=== PATIENT | male | born 1965 | race Caucasian/White ===

== ENCOUNTER 2020-01-18 12:33 | Inpatient (IN) | payer MEDICAID ==
[~2020-01-18] VITALS: Ht 177.8 cm; Wt 91.0 kg
[~2020-01-18 12:33] MED LIST: DEXAMETHASONE SOD PHOS 4 MG/ML VIAL IVP ONE; FentaNYL CITRATE PF 100 MCG/2 ML VIAL IVP ONE; LIDOCAINE/PF 2% 5 ML VIAL INJ ONE; ONDANSETRON HCL 4 MG/2 ML VIAL IVP ONE; PROPOFOL 1% 20 ML VIAL IVP ONE; ROCURONIUM BROMIDE 10 MG/ML 5 ML VIAL IVP ONE
[2020-01-18] MEDS ORDERED: VANCOMYCIN HCL 1.5 GM in DEXTROSE 5%-WATER 250 ML IV ONE ×2 (15:45→19:45)
[2020-01-18] MEDS ORDERED: CefTRIAXone 1 GM/DEXTROSE 50 ML IV ONE (15:45)
[2020-01-18] MEDS ORDERED: SODIUM CHLORIDE 0.9% 250 ML IV ONE ×2 (16:41→17:19)
[2020-01-18] MEDS ORDERED: SODIUM CHLORIDE 0.9% 2,850 ML IV ONE (16:45)
[2020-01-18] MEDS ORDERED: CLINDAMYCIN 900 MG/D5% WATER 50 ML IV ONE (16:45)
[2020-01-18 17:32] LABS: BASOPHILS % (AUTO) 0.1 % (0.0-2.0); EOSINOPHILS % (AUTO) 0 % (1.0-6.0); HEMATOCRIT 32.5 % (41-53); HEMOGLOBIN 10.7 g/dL (13.5-17.5); LYMPHOCYTES # (AUTO) 1.3 K/uL (1.0-4.8); LYMPHOCYTES % (AUTO) 5.5 % (22.0-44.0); MEAN CORPUSCULAR HEMOGLOBIN 28.9 pg (26.0-34.0); MEAN CORPUSCULAR HGB CONC 32.8 G/dL (31.0-37.0); MEAN CORPUSCULAR VOLUME 88 fL (80-100); MONOCYTES % (AUTO) 8.9 % (2.0-9.0); NEUTROPHILS # (AUTO) 19.6 K/uL (1.8-7.7); PLATELET COUNT (AUTO) 283 K/uL (150-450); RED BLOOD CELL COUNT(AUTO) 3.68 MIL/uL (4.50-5.90); RED CELL DISTRIBUTION WIDTH 15.3 % (11.5-14.5)
[2020-01-18 17:34] LABS: NEUTROPHILS % (AUTO) 85.5 % (40.0-70.0)
[2020-01-18 17:35] LABS: COVID AG,FIA SOURCE NASAL SWAB
[2020-01-18 17:49] LABS: ALBUMIN 2.1 g/dL (3.4-5.0); BILIRUBIN,TOTAL 0.9 mg/dL (0.1-1.0); CALCIUM, TOTAL 8.3 mg/dL (8.8-10.5); CREATININE 2.38 mg/dL (0.60-1.30); POTASSIUM 4.5 mmol/L (3.5-5.1); TOTAL PROTEIN, SERUM 7.7 g/dL (6.4-8.2)
[2020-01-18 18:00] LABS: LACTIC ACID 1.8 mmol/L (0.4-2.0)
[2020-01-18] MEDS ORDERED: INSULIN REGULAR, HUMAN 100 UNITS/ML IVP ONE (18:15)
[2020-01-18 18:29] LABS: INR 1.1 (0.9-1.1); PROTHROMBIN TIME 11.1 SEC (9.4-11.6)
[2020-01-18] MEDS ORDERED: PIPERACILLIN/TAZO 3.375 GM/D5W 50 ML IV SCH (19:00)
[2020-01-18] MEDS ORDERED: ACETAMINOPHEN 325 MG TABLET PO PRN (19:15)
[2020-01-18] MEDS ORDERED: DEXTROSE 50%-WATER 25 GM/50 ML SYRINGE IVP PRN (19:15)
[2020-01-18] MEDS ORDERED: ONDANSETRON HCL 4 MG/2 ML VIAL IVP PRN (19:15)
[2020-01-18] MEDS ORDERED: INSULIN LISPRO 100 UNITS/ML SQ ONE (19:15)
[2020-01-18] MEDS ORDERED: MORPHINE SULFATE 4 MG/ML SYRINGE IVP PRN (19:15)
[2020-01-18] MEDS: CLINDAMYCIN 600 MG/D5% WATER 50 ML IV SCH (19:30)
[2020-01-18] MEDS ORDERED: SODIUM CL IRRIG SOLN BAG 3,000 ML IRRIG ONE (20:23)
[2020-01-18] MEDS: INSULIN GLARGINE,HUM.REC.ANLOG 100 UNITS/ML SQ SCH ×2 (20:25→21:00)
[2020-01-18] MEDS ORDERED: MEPERIDINE-PF 25 MG/ML VIAL IVP PRN (20:30)
[2020-01-18] MEDS ORDERED: FentaNYL CITRATE PF 100 MCG/2 ML VIAL IVP PRN (20:30)
[2020-01-18] MEDS ORDERED: HYDROmorphone 2 MG/ML SYRINGE IVP PRN ×2 (20:30→22:00)
[2020-01-18] MEDS ORDERED: RINGERS SOLUTION,LACTATED 1,000 ML IV ONE ×2 (20:31→22:13)
[2020-01-18] MEDS ORDERED: SODIUM CHLORIDE 0.9% 1,000 ML ONE (20:35)
[2020-01-18] MEDS: DOCUSATE SODIUM 100 MG CAPSULE PO SCH (21:00)
[2020-01-18] MEDS ORDERED: SUGAMMADEX SODIUM 200 MG/2 ML VIAL IVP ONE (21:14)
[2020-01-18 21:29] LABS: GLUCOMETER DEV NAME(LOC) AHU.; GLUCOSE,POINT OF CARE 288 MG/DL (70-110)
[2020-01-18] MEDS ORDERED: ACETAMINOPHEN 1000 MG/ISO-OSM 100 ML IV ONE ×2 (21:48→22:15)
[2020-01-18] MEDS ORDERED: PIPERACILLIN SODIUM/TAZOBACTAM 4.5 GM in DEXTROSE 5%-WATER 100 ML IV SCH (22:00)
[2020-01-18 22:52] VITALS: BP 124/70
[2020-01-18 23:00] VITALS: BP 124/70
[2020-01-18] MEDS: INSULIN LISPRO 100 UNITS/ML SQ PRN (23:33)
[2020-01-19] MEDS: SODIUM CHLORIDE 0.9% 2,850 ML IV SCH ×2 (00:30→09:30)
[2020-01-19] MEDS: PIPERACILLIN SODIUM/TAZOBACTAM 4.5 GM in DEXTROSE 5%-WATER 100 ML IV SCH ×2 (02:50→09:15)
[2020-01-19] MEDS: CLINDAMYCIN 600 MG/D5% WATER 50 ML IV SCH ×2 (03:52→12:14)
[2020-01-19 04:43] VITALS: BP 132/80
[2020-01-19] MEDS: INSULIN LISPRO 100 UNITS/ML SQ PRN ×4 (05:50→20:55)
[2020-01-19 06:21] LABS: GLUCOMETER DEV NAME(LOC) 5N.3; GLUCOSE,POINT OF CARE 330 MG/DL (70-110)
[2020-01-19 06:30] LABS: GLUCOMETER DEV NAME(LOC) 5S.1; GLUCOSE,POINT OF CARE 298 MG/DL (70-110)
[2020-01-19 06:33] LABS: BASOPHILS % (AUTO) 0.6 % (0.0-2.0); EOSINOPHILS % (AUTO) 0.1 % (1.0-6.0); HEMATOCRIT 27.4 % (41-53); HEMOGLOBIN 9.1 g/dL (13.5-17.5); LYMPHOCYTES # (AUTO) 1.3 K/uL (1.0-4.8); LYMPHOCYTES % (AUTO) 6.7 % (22.0-44.0); MEAN CORPUSCULAR HEMOGLOBIN 29.4 pg (26.0-34.0); MEAN CORPUSCULAR HGB CONC 33.3 G/dL (31.0-37.0); MEAN CORPUSCULAR VOLUME 88 fL (80-100); MONOCYTES % (AUTO) 10.2 % (2.0-9.0); NEUTROPHILS # (AUTO) 16.1 K/uL (1.8-7.7); NEUTROPHILS % (AUTO) 82.4 % (40.0-70.0); PLATELET COUNT (AUTO) 234 K/uL (150-450); RED BLOOD CELL COUNT(AUTO) 3.12 MIL/uL (4.50-5.90); RED CELL DISTRIBUTION WIDTH 15.3 % (11.5-14.5)
[2020-01-19 07:06] LABS: INR 1.1 (0.9-1.1); PROTHROMBIN TIME 11.3 SEC (9.4-11.6)
[2020-01-19 07:13] LABS: ALBUMIN 1.5 g/dL (3.4-5.0); BILIRUBIN,TOTAL 0.7 mg/dL (0.1-1.0); CALCIUM, TOTAL 7.1 mg/dL (8.8-10.5); CREATININE 2.2 mg/dL (0.60-1.30); POTASSIUM 3.9 mmol/L (3.5-5.1)
[2020-01-19] MEDS ORDERED: VANCOMYCIN HCL 1 GM/D5% WATER 200 ML IV SCH (08:00)
[2020-01-19 08:08] VITALS: BP 140/81
[2020-01-19] MEDS: DOCUSATE SODIUM 100 MG CAPSULE PO SCH ×2 (08:49→20:43)
[2020-01-19] MEDS: FAMOTIDINE 20 MG TABLET PO SCH ×2 (10:14→20:43)
[2020-01-19 11:18] VITALS: BP 138/77
[2020-01-19] MEDS: OXYGEN THERAPY IH SCH ×2 (14:56→20:42)
[2020-01-19 14:58] LABS: GLUCOMETER DEV NAME(LOC) 5S.2B; GLUCOSE,POINT OF CARE 272 MG/DL (70-110)
[2020-01-19] MEDS: MEROPENEM 2 GM in SODIUM CHLORIDE 0.9% 100 ML IV SCH ×2 (14:58→23:29)
[2020-01-19 15:05] VITALS: BP 133/74
[2020-01-19 19:40] VITALS: BP 148/75
[2020-01-19 19:57] LABS: GLUCOMETER DEV NAME(LOC) 5S.2B; GLUCOSE,POINT OF CARE 237 MG/DL (70-110)
[2020-01-19] MEDS: INSULIN GLARGINE,HUM.REC.ANLOG 100 UNITS/ML SQ SCH (20:55)
[2020-01-19] MEDS ORDERED: PB/HYOSCY/ATR/SCOP/LIDO/MAALOX 55 ML BOTTLE PO ONE (23:30)
[2020-01-20 00:27] VITALS: BP 134/75
[2020-01-20 04:45] VITALS: BP 114/80
[2020-01-20 05:06] LABS: GLUCOMETER DEV NAME(LOC) 5S.2B; GLUCOSE,POINT OF CARE 235 MG/DL (70-110)
[2020-01-20] MEDS ORDERED: SODIUM CHLORIDE 0.9% 250 ML IV ONE (05:57)
[2020-01-20 06:02] LABS: BASOPHILS % (AUTO) 0.3 % (0.0-2.0); HEMATOCRIT 27.7 % (41-53); HEMOGLOBIN 9.1 g/dL (13.5-17.5); LYMPHOCYTES # (AUTO) 1.3 K/uL (1.0-4.8); LYMPHOCYTES % (AUTO) 7.2 % (22.0-44.0); MEAN CORPUSCULAR HEMOGLOBIN 29.1 pg (26.0-34.0); MEAN CORPUSCULAR HGB CONC 32.9 G/dL (31.0-37.0); MEAN CORPUSCULAR VOLUME 89 fL (80-100); MONOCYTES # (AUTO) 1.8 K/uL (0.1-1.0); MONOCYTES % (AUTO) 9.6 % (2.0-9.0); NEUTROPHILS # (AUTO) 15.1 K/uL (1.8-7.7); NEUTROPHILS % (AUTO) 81.9 % (40.0-70.0); PLATELET COUNT (AUTO) 280 K/uL (150-450); RED BLOOD CELL COUNT(AUTO) 3.13 MIL/uL (4.50-5.90); RED CELL DISTRIBUTION WIDTH 15.3 % (11.5-14.5)
[2020-01-20] MEDS: MEROPENEM 2 GM in SODIUM CHLORIDE 0.9% 100 ML IV SCH ×2 (06:02→14:44)
[2020-01-20] MEDS: INSULIN LISPRO 100 UNITS/ML SQ PRN ×4 (06:02→22:19)
[2020-01-20 06:23] LABS: INR 1.1 (0.9-1.1); PROTHROMBIN TIME 11.1 SEC (9.4-11.6)
[2020-01-20 07:11] VITALS: BP 151/81
[2020-01-20 07:13] LABS: ALBUMIN 1.4 g/dL (3.4-5.0); BILIRUBIN,TOTAL 0.6 mg/dL (0.1-1.0); CALCIUM, TOTAL 7.3 mg/dL (8.8-10.5); CREATININE 2.03 mg/dL (0.60-1.30); POTASSIUM 3.7 mmol/L (3.5-5.1); TOTAL PROTEIN, SERUM 5.9 g/dL (6.4-8.2)
[2020-01-20] MEDS: OXYGEN THERAPY IH SCH ×2 (08:00→20:00)
[2020-01-20 08:23] LABS: GLUCOMETER DEV NAME(LOC) 5S.1; GLUCOSE,POINT OF CARE 212 MG/DL (70-110)
[2020-01-20] MEDS: DOCUSATE SODIUM 100 MG CAPSULE PO SCH ×2 (09:00→22:10)
[2020-01-20] MEDS: FAMOTIDINE 20 MG TABLET PO SCH ×2 (09:34→22:10)
[2020-01-20] MEDS: INSULIN GLARGINE,HUM.REC.ANLOG 100 UNITS/ML SQ SCH ×2 (09:36→22:18)
[2020-01-20 11:18] VITALS: BP 158/83
[2020-01-20 12:00] LABS: GLUCOMETER DEV NAME(LOC) 5S.2B; GLUCOSE,POINT OF CARE 223 MG/DL (70-110)
[2020-01-20 12:00] LABS: GLUCOMETER DEV NAME(LOC) 5S.2B; GLUCOSE,POINT OF CARE 227 MG/DL (70-110)
[2020-01-20 15:44] VITALS: BP 151/77
[2020-01-20] MEDS: BENZOCAINE/MENTHOL LOZENGE PO PRN ×2 (18:10→22:20)
[2020-01-20 22:04] LABS: GLUCOMETER DEV NAME(LOC) 5S.1; GLUCOSE,POINT OF CARE 214 MG/DL (70-110)
[2020-01-21] VITALS: BP 155/80
[2020-01-21] MEDS: MEROPENEM 2 GM in SODIUM CHLORIDE 0.9% 100 ML IV SCH ×4 (00:05→23:25)
[2020-01-21 00:24] LABS: GLUCOMETER DEV NAME(LOC) 5S.2B; GLUCOSE,POINT OF CARE 249 MG/DL (70-110)
[2020-01-21 04:00] VITALS: BP 127/53
[2020-01-21] MEDS: INSULIN LISPRO 100 UNITS/ML SQ PRN ×4 (06:32→20:54)
[2020-01-21 07:22] LABS: BASOPHILS % (AUTO) 0.5 % (0.0-2.0); HEMATOCRIT 28.2 % (41-53); HEMOGLOBIN 9.1 g/dL (13.5-17.5); LYMPHOCYTES # (AUTO) 2.2 K/uL (1.0-4.8); MEAN CORPUSCULAR HEMOGLOBIN 28.7 pg (26.0-34.0); MEAN CORPUSCULAR HGB CONC 32.2 G/dL (31.0-37.0); MEAN CORPUSCULAR VOLUME 89 fL (80-100); MONOCYTES % (AUTO) 8.8 % (2.0-9.0); NEUTROPHILS # (AUTO) 17.8 K/uL (1.8-7.7); NEUTROPHILS % (AUTO) 79.7 % (40.0-70.0); PLATELET COUNT (AUTO) 349 K/uL (150-450); RED BLOOD CELL COUNT(AUTO) 3.16 MIL/uL (4.50-5.90); RED CELL DISTRIBUTION WIDTH 15.6 % (11.5-14.5)
[2020-01-21 07:54] VITALS: BP 153/86
[2020-01-21 07:54] LABS: ALBUMIN 1.3 g/dL (3.4-5.0); BILIRUBIN,TOTAL 0.5 mg/dL (0.1-1.0); CALCIUM, TOTAL 7.6 mg/dL (8.8-10.5); CREATININE 2.11 mg/dL (0.60-1.30); POTASSIUM 3.9 mmol/L (3.5-5.1); TOTAL PROTEIN, SERUM 6.1 g/dL (6.4-8.2)
[2020-01-21] MEDS: OXYGEN THERAPY IH SCH ×2 (08:00→20:00)
[2020-01-21 08:24] LABS: GLUCOMETER DEV NAME(LOC) 5S.1; GLUCOSE,POINT OF CARE 167 MG/DL (70-110)
[2020-01-21] MEDS: DOCUSATE SODIUM 100 MG CAPSULE PO SCH ×2 (09:00→20:51)
[2020-01-21] MEDS: FAMOTIDINE 20 MG TABLET PO SCH ×2 (09:42→20:51)
[2020-01-21] MEDS: INSULIN GLARGINE,HUM.REC.ANLOG 100 UNITS/ML SQ SCH ×2 (09:43→20:53)
[2020-01-21 11:44] VITALS: BP 145/79
[2020-01-21 12:26] LABS: GLUCOMETER DEV NAME(LOC) 5S.2B; GLUCOSE,POINT OF CARE 217 MG/DL (70-110)
[2020-01-21 16:00] VITALS: BP_SYST 172; BP_SYST 180; BP_DIAS 81; BP_DIAS 89
[2020-01-21] MEDS: HYDROCODONE/ACETAMINOPHEN 5-325 MG TABLET PO PRN (16:22)
[2020-01-21 17:09] LABS: GLUCOMETER DEV NAME(LOC) 5S.2B; GLUCOSE,POINT OF CARE 188 MG/DL (70-110)
[2020-01-21 18:13] LABS: GLUCOMETER DEV NAME(LOC) 5S.2B; GLUCOSE,POINT OF CARE 230 MG/DL (70-110)
[2020-01-21 20:00] VITALS: BP 150/88
[2020-01-21] MEDS: ACETAMINOPHEN 500 MG TABLET PO PRN (23:47)
[2020-01-22] VITALS: BP 152/81
[2020-01-22 00:43] LABS: GLUCOMETER DEV NAME(LOC) 5S.1; GLUCOSE,POINT OF CARE 260 MG/DL (70-110)
[2020-01-22 04:00] VITALS: BP 153/86
[2020-01-22] MEDS: MEROPENEM 2 GM in SODIUM CHLORIDE 0.9% 100 ML IV SCH ×2 (06:34→14:35)
[2020-01-22] MEDS: INSULIN LISPRO 100 UNITS/ML SQ PRN ×3 (06:37→19:51)
[2020-01-22 06:41] LABS: BASOPHILS % (AUTO) 0.4 % (0.0-2.0); EOSINOPHILS % (AUTO) 1.4 % (1.0-6.0); HEMATOCRIT 27.8 % (41-53); HEMOGLOBIN 9.1 g/dL (13.5-17.5); LYMPHOCYTES # (AUTO) 1.6 K/uL (1.0-4.8); LYMPHOCYTES % (AUTO) 7.5 % (22.0-44.0); MEAN CORPUSCULAR HGB CONC 32.8 G/dL (31.0-37.0); MEAN CORPUSCULAR VOLUME 88 fL (80-100); MONOCYTES # (AUTO) 1.3 K/uL (0.1-1.0); MONOCYTES % (AUTO) 6.2 % (2.0-9.0); NEUTROPHILS # (AUTO) 17.6 K/uL (1.8-7.7); NEUTROPHILS % (AUTO) 84.5 % (40.0-70.0); PLATELET COUNT (AUTO) 425 K/uL (150-450); RED BLOOD CELL COUNT(AUTO) 3.14 MIL/uL (4.50-5.90); RED CELL DISTRIBUTION WIDTH 15.1 % (11.5-14.5)
[2020-01-22 06:53] LABS: ALBUMIN 1.5 g/dL (3.4-5.0); BILIRUBIN,TOTAL 0.5 mg/dL (0.1-1.0); CALCIUM, TOTAL 8.4 mg/dL (8.8-10.5); CREATININE 2.04 mg/dL (0.60-1.30); POTASSIUM 4.7 mmol/L (3.5-5.1); TOTAL PROTEIN, SERUM 6.6 g/dL (6.4-8.2)
[2020-01-22] MEDS: OXYGEN THERAPY IH SCH (08:00)
[2020-01-22] MEDS: DOCUSATE SODIUM 100 MG CAPSULE PO SCH ×2 (08:36→19:46)
[2020-01-22] MEDS: FAMOTIDINE 20 MG TABLET PO SCH ×2 (08:36→19:46)
[2020-01-22] MEDS: INSULIN GLARGINE,HUM.REC.ANLOG 100 UNITS/ML SQ SCH ×2 (08:39→19:51)
[2020-01-22] MEDS: HYDROCODONE/ACETAMINOPHEN 5-325 MG TABLET PO PRN (09:11)
[2020-01-22 16:24] VITALS: BP 152/87
[2020-01-22] MEDS: ACETAMINOPHEN 500 MG TABLET PO PRN (16:43)
[2020-01-22 18:39] LABS: GLUCOMETER DEV NAME(LOC) 5S.1; GLUCOSE,POINT OF CARE 158 MG/DL (70-110)
[2020-01-22 18:39] LABS: GLUCOMETER DEV NAME(LOC) 5S.1; GLUCOSE,POINT OF CARE 151 MG/DL (70-110)
[2020-01-22 18:39] LABS: GLUCOMETER DEV NAME(LOC) 5S.1; GLUCOSE,POINT OF CARE 182 MG/DL (70-110)
[2020-01-22 18:39] LABS: GLUCOMETER DEV NAME(LOC) 5S.1; GLUCOSE,POINT OF CARE 114 MG/DL (70-110)
[2020-01-22 20:00] VITALS: BP 151/82
[2020-01-22 20:50] LABS: GLUCOMETER DEV NAME(LOC) 5S.1; GLUCOSE,POINT OF CARE 260 MG/DL (70-110)
[2020-01-23] VITALS: BP 157/80
[2020-01-23] MEDS: MEROPENEM 2 GM in SODIUM CHLORIDE 0.9% 100 ML IV SCH ×3 (00:36→15:05)
[2020-01-23 04:00] VITALS: BP 150/78
[2020-01-23] MEDS: MORPHINE SULFATE 4 MG/ML SYRINGE IVP PRN ×2 (04:39→20:03)
[2020-01-23] MEDS: INSULIN LISPRO 100 UNITS/ML SQ PRN ×4 (06:14→20:20)
[2020-01-23 06:29] LABS: BASOPHILS % (AUTO) 0.4 % (0.0-2.0); EOSINOPHILS % (AUTO) 1.5 % (1.0-6.0); HEMATOCRIT 26.7 % (41-53); HEMOGLOBIN 9.3 g/dL (13.5-17.5); LYMPHOCYTES # (AUTO) 1.7 K/uL (1.0-4.8); LYMPHOCYTES % (AUTO) 8.4 % (22.0-44.0); MEAN CORPUSCULAR HEMOGLOBIN 30.5 pg (26.0-34.0); MEAN CORPUSCULAR HGB CONC 34.8 G/dL (31.0-37.0); MEAN CORPUSCULAR VOLUME 88 fL (80-100); MONOCYTES # (AUTO) 1.3 K/uL (0.1-1.0); MONOCYTES % (AUTO) 6.4 % (2.0-9.0); NEUTROPHILS # (AUTO) 16.9 K/uL (1.8-7.7); NEUTROPHILS % (AUTO) 83.3 % (40.0-70.0); PLATELET COUNT (AUTO) 493 K/uL (150-450); RED BLOOD CELL COUNT(AUTO) 3.04 MIL/uL (4.50-5.90)
[2020-01-23 06:39] LABS: ALBUMIN 1.3 g/dL (3.4-5.0); BILIRUBIN,TOTAL 0.5 mg/dL (0.1-1.0); CREATININE 1.94 mg/dL (0.60-1.30); TOTAL PROTEIN, SERUM 6.4 g/dL (6.4-8.2)
[2020-01-23 07:08] LABS: GLUCOMETER DEV NAME(LOC) 5S.1; GLUCOSE,POINT OF CARE 161 MG/DL (70-110)
[2020-01-23] MEDS: DOCUSATE SODIUM 100 MG CAPSULE PO SCH ×2 (08:10→20:03)
[2020-01-23 08:11] VITALS: BP 153/77
[2020-01-23] MEDS: FAMOTIDINE 20 MG TABLET PO SCH ×2 (08:11→20:03)
[2020-01-23] MEDS: INSULIN GLARGINE,HUM.REC.ANLOG 100 UNITS/ML SQ SCH ×2 (08:12→20:20)
[2020-01-23 11:10] VITALS: BP 154/86
[2020-01-23 15:12] VITALS: BP 159/77
[2020-01-23 19:32] VITALS: BP 154/79
[2020-01-23 19:51] LABS: GLUCOMETER DEV NAME(LOC) 5S.1; GLUCOSE,POINT OF CARE 198 MG/DL (70-110)
[2020-01-23 19:51] LABS: GLUCOMETER DEV NAME(LOC) 5S.1; GLUCOSE,POINT OF CARE 181 MG/DL (70-110)
[2020-01-24 00:18] VITALS: BP 151/86
[2020-01-24] MEDS: MEROPENEM 2 GM in SODIUM CHLORIDE 0.9% 100 ML IV SCH ×3 (00:32→15:56)
[2020-01-24 04:28] VITALS: BP 133/63
[2020-01-24 06:01] LABS: BASOPHILS % (AUTO) 0.6 % (0.0-2.0); EOSINOPHILS % (AUTO) 1.2 % (1.0-6.0); HEMATOCRIT 25.3 % (41-53); HEMOGLOBIN 8.5 g/dL (13.5-17.5); LYMPHOCYTES # (AUTO) 2.2 K/uL (1.0-4.8); LYMPHOCYTES % (AUTO) 10.9 % (22.0-44.0); MEAN CORPUSCULAR HEMOGLOBIN 29.4 pg (26.0-34.0); MEAN CORPUSCULAR HGB CONC 33.4 G/dL (31.0-37.0); MEAN CORPUSCULAR VOLUME 88 fL (80-100); MONOCYTES # (AUTO) 1.6 K/uL (0.1-1.0); MONOCYTES % (AUTO) 7.9 % (2.0-9.0); NEUTROPHILS # (AUTO) 15.6 K/uL (1.8-7.7); NEUTROPHILS % (AUTO) 79.4 % (40.0-70.0); PLATELET COUNT (AUTO) 554 K/uL (150-450); RED BLOOD CELL COUNT(AUTO) 2.87 MIL/uL (4.50-5.90); RED CELL DISTRIBUTION WIDTH 14.8 % (11.5-14.5)
[2020-01-24] MEDS: INSULIN LISPRO 100 UNITS/ML SQ PRN ×4 (06:05→20:19)
[2020-01-24 06:54] LABS: ALBUMIN 1.4 g/dL (3.4-5.0); BILIRUBIN,TOTAL 0.4 mg/dL (0.1-1.0); CALCIUM, TOTAL 8.2 mg/dL (8.8-10.5); CREATININE 2.17 mg/dL (0.60-1.30); POTASSIUM 4.9 mmol/L (3.5-5.1); TOTAL PROTEIN, SERUM 6.4 g/dL (6.4-8.2)
[2020-01-24 07:15] VITALS: BP 151/91
[2020-01-24 07:53] LABS: GLUCOMETER DEV NAME(LOC) 5S.1; GLUCOSE,POINT OF CARE 231 MG/DL (70-110)
[2020-01-24 07:54] LABS: GLUCOMETER DEV NAME(LOC) 5S.1; GLUCOSE,POINT OF CARE 197 MG/DL (70-110)
[2020-01-24] MEDS: OXYGEN THERAPY IH SCH ×3 (08:00→08:48)
[2020-01-24] MEDS: DOCUSATE SODIUM 100 MG CAPSULE PO SCH ×2 (08:50→20:20)
[2020-01-24] MEDS: FAMOTIDINE 20 MG TABLET PO SCH ×2 (08:50→20:16)
[2020-01-24] MEDS: INSULIN GLARGINE,HUM.REC.ANLOG 100 UNITS/ML SQ SCH ×2 (08:52→20:18)
[2020-01-24 11:30] VITALS: BP 154/85
[2020-01-24] MEDS ORDERED: SODIUM CHLORIDE 0.9% 1,000 ML IV ONE (11:30)
[2020-01-24 14:59] VITALS: BP 153/78
[2020-01-24 20:10] LABS: GLUCOMETER DEV NAME(LOC) 5S.1; GLUCOSE,POINT OF CARE 216 MG/DL (70-110)
[2020-01-24 20:10] LABS: GLUCOMETER DEV NAME(LOC) 5S.1; GLUCOSE,POINT OF CARE 221 MG/DL (70-110)
[2020-01-24] MEDS: MORPHINE SULFATE 4 MG/ML SYRINGE IVP PRN (20:26)
[2020-01-24 20:41] VITALS: BP 162/83
[2020-01-24 21:13] LABS: GLUCOMETER DEV NAME(LOC) 5N.1; GLUCOSE,POINT OF CARE 214 MG/DL (70-110)
[2020-01-25] MEDS: MEROPENEM 2 GM in SODIUM CHLORIDE 0.9% 100 ML IV SCH ×4 (00:13→23:05)
[2020-01-25 00:35] VITALS: BP 154/77
[2020-01-25 04:47] VITALS: BP 152/84
[2020-01-25] MEDS: INSULIN LISPRO 100 UNITS/ML SQ PRN ×4 (06:12→20:02)
[2020-01-25 07:00] LABS: BASOPHILS % (AUTO) 0.8 % (0.0-2.0); EOSINOPHILS % (AUTO) 1.7 % (1.0-6.0); HEMATOCRIT 26.8 % (41-53); LYMPHOCYTES % (AUTO) 12.1 % (22.0-44.0); MEAN CORPUSCULAR HEMOGLOBIN 29.2 pg (26.0-34.0); MEAN CORPUSCULAR HGB CONC 33.4 G/dL (31.0-37.0); MEAN CORPUSCULAR VOLUME 88 fL (80-100); MONOCYTES # (AUTO) 1.3 K/uL (0.1-1.0); MONOCYTES % (AUTO) 7.8 % (2.0-9.0); NEUTROPHILS # (AUTO) 12.8 K/uL (1.8-7.7); NEUTROPHILS % (AUTO) 77.6 % (40.0-70.0); PLATELET COUNT (AUTO) 655 K/uL (150-450); RED BLOOD CELL COUNT(AUTO) 3.07 MIL/uL (4.50-5.90)
[2020-01-25 07:33] LABS: ALBUMIN 1.5 g/dL (3.4-5.0); BILIRUBIN,TOTAL 0.5 mg/dL (0.1-1.0); CALCIUM, TOTAL 8.6 mg/dL (8.8-10.5); CREATININE 1.92 mg/dL (0.60-1.30); POTASSIUM 4.6 mmol/L (3.5-5.1); TOTAL PROTEIN, SERUM 6.8 g/dL (6.4-8.2)
[2020-01-25 07:53] VITALS: BP 148/78
[2020-01-25] MEDS: FAMOTIDINE 20 MG TABLET PO SCH ×2 (08:21→19:58)
[2020-01-25] MEDS: DOCUSATE SODIUM 100 MG CAPSULE PO SCH ×2 (08:21→19:58)
[2020-01-25] MEDS: INSULIN GLARGINE,HUM.REC.ANLOG 100 UNITS/ML SQ SCH ×2 (08:22→20:01)
[2020-01-25] MEDS ORDERED: SODIUM CHLORIDE 0.9% 1,000 ML IV ONE (10:00)
[2020-01-25] MEDS: OXYGEN THERAPY IH SCH ×3 (10:32→20:00)
[2020-01-25 11:08] VITALS: BP 154/83
[2020-01-25] MEDS: HYDROCODONE/ACETAMINOPHEN 5-325 MG TABLET PO PRN ×2 (14:20→20:03)
[2020-01-25 15:55] VITALS: BP 156/84
[2020-01-25 20:29] VITALS: BP 148/77
[2020-01-25 20:45] LABS: GLUCOMETER DEV NAME(LOC) 5S.1; GLUCOSE,POINT OF CARE 155 MG/DL (70-110)
[2020-01-25 20:45] LABS: GLUCOMETER DEV NAME(LOC) 5S.1; GLUCOSE,POINT OF CARE 145 MG/DL (70-110)
[2020-01-25 20:46] LABS: GLUCOMETER DEV NAME(LOC) 5S.1; GLUCOSE,POINT OF CARE 181 MG/DL (70-110)
[2020-01-25 21:24] LABS: GLUCOMETER DEV NAME(LOC) 5S.2B; GLUCOSE,POINT OF CARE 202 MG/DL (70-110)
[2020-01-26 00:27] VITALS: BP 130/74
[2020-01-26] MEDS: HYDROCODONE/ACETAMINOPHEN 5-325 MG TABLET PO PRN ×3 (04:23→20:05)
[2020-01-26 04:47] VITALS: BP 139/71
[2020-01-26] MEDS: MEROPENEM 2 GM in SODIUM CHLORIDE 0.9% 100 ML IV SCH ×3 (06:05→23:48)
[2020-01-26 07:00] LABS: GLUCOMETER DEV NAME(LOC) 5S.1; GLUCOSE,POINT OF CARE 138 MG/DL (70-110)
[2020-01-26 07:43] VITALS: BP 150/81
[2020-01-26 07:44] LABS: BASOPHILS % (AUTO) 0.9 % (0.0-2.0); EOSINOPHILS % (AUTO) 2.5 % (1.0-6.0); HEMATOCRIT 27.1 % (41-53); HEMOGLOBIN 9.1 g/dL (13.5-17.5); LYMPHOCYTES # (AUTO) 1.9 K/uL (1.0-4.8); LYMPHOCYTES % (AUTO) 15.9 % (22.0-44.0); MEAN CORPUSCULAR HEMOGLOBIN 29.8 pg (26.0-34.0); MEAN CORPUSCULAR HGB CONC 33.7 G/dL (31.0-37.0); MEAN CORPUSCULAR VOLUME 89 fL (80-100); MONOCYTES % (AUTO) 8.6 % (2.0-9.0); NEUTROPHILS # (AUTO) 8.7 K/uL (1.8-7.7); NEUTROPHILS % (AUTO) 72.1 % (40.0-70.0); PLATELET COUNT (AUTO) 721 K/uL (150-450); RED BLOOD CELL COUNT(AUTO) 3.06 MIL/uL (4.50-5.90); RED CELL DISTRIBUTION WIDTH 14.9 % (11.5-14.5)
[2020-01-26 08:00] LABS: ALBUMIN 1.6 g/dL (3.4-5.0); BILIRUBIN,TOTAL 0.5 mg/dL (0.1-1.0); CALCIUM, TOTAL 8.1 mg/dL (8.8-10.5); CREATININE 2.02 mg/dL (0.60-1.30); POTASSIUM 4.7 mmol/L (3.5-5.1); TOTAL PROTEIN, SERUM 6.9 g/dL (6.4-8.2)
[2020-01-26] MEDS: OXYGEN THERAPY IH SCH ×2 (08:00→20:00)
[2020-01-26] MEDS: FAMOTIDINE 20 MG TABLET PO SCH ×2 (08:22→20:05)
[2020-01-26] MEDS: DOCUSATE SODIUM 100 MG CAPSULE PO SCH ×2 (08:24→20:04)
[2020-01-26] MEDS: INSULIN GLARGINE,HUM.REC.ANLOG 100 UNITS/ML SQ SCH ×2 (08:24→20:07)
[2020-01-26] MEDS: HEPARIN SODIUM,PORCINE 5,000 UNITS/ML VIAL SQ SCH ×2 (11:12→16:00)
[2020-01-26 11:26] VITALS: BP 156/87
[2020-01-26] MEDS: INSULIN LISPRO 100 UNITS/ML SQ PRN ×3 (11:40→20:08)
[2020-01-26] MEDS: MORPHINE SULFATE 4 MG/ML SYRINGE IVP PRN (16:21)
[2020-01-26 17:07] VITALS: BP 159/87
[2020-01-26 19:26] VITALS: BP 154/79
[2020-01-26 19:55] LABS: GLUCOMETER DEV NAME(LOC) 5S.1; GLUCOSE,POINT OF CARE 170 MG/DL (70-110)
[2020-01-26 20:09] LABS: GLUCOMETER DEV NAME(LOC) 5S.1; GLUCOSE,POINT OF CARE 189 MG/DL (70-110)
[2020-01-26 20:52] LABS: GLUCOMETER DEV NAME(LOC) 5S.2B; GLUCOSE,POINT OF CARE 169 MG/DL (70-110)
[2020-01-27 00:03] VITALS: BP 152/78
[2020-01-27] MEDS: HEPARIN SODIUM,PORCINE 5,000 UNITS/ML VIAL SQ SCH ×4 (00:41→23:04)
[2020-01-27 04:25] VITALS: BP 154/93
[2020-01-27] MEDS: MEROPENEM 2 GM in SODIUM CHLORIDE 0.9% 100 ML IV SCH ×3 (06:00→23:01)
[2020-01-27] MEDS: INSULIN LISPRO 100 UNITS/ML SQ PRN ×4 (06:05→20:44)
[2020-01-27 06:30] LABS: EOSINOPHILS % (AUTO) 2.3 % (1.0-6.0); HEMATOCRIT 27.7 % (41-53); HEMOGLOBIN 9.1 g/dL (13.5-17.5); LYMPHOCYTES # (AUTO) 2.1 K/uL (1.0-4.8); LYMPHOCYTES % (AUTO) 16.3 % (22.0-44.0); MEAN CORPUSCULAR HEMOGLOBIN 29.2 pg (26.0-34.0); MEAN CORPUSCULAR VOLUME 88 fL (80-100); MONOCYTES # (AUTO) 1.1 K/uL (0.1-1.0); MONOCYTES % (AUTO) 8.2 % (2.0-9.0); NEUTROPHILS # (AUTO) 9.3 K/uL (1.8-7.7); NEUTROPHILS % (AUTO) 72.2 % (40.0-70.0); RED BLOOD CELL COUNT(AUTO) 3.13 MIL/uL (4.50-5.90); RED CELL DISTRIBUTION WIDTH 14.6 % (11.5-14.5)
[2020-01-27 06:41] LABS: GLUCOMETER DEV NAME(LOC) 5S.2B; GLUCOSE,POINT OF CARE 146 MG/DL (70-110)
[2020-01-27 07:32] LABS: ALBUMIN 1.7 g/dL (3.4-5.0); BILIRUBIN,TOTAL 0.3 mg/dL (0.1-1.0); CALCIUM, TOTAL 8.2 mg/dL (8.8-10.5); CREATININE 2.01 mg/dL (0.60-1.30); TOTAL PROTEIN, SERUM 7.2 g/dL (6.4-8.2)
[2020-01-27 07:48] LABS: PLATELET COUNT (AUTO) 772 K/uL (150-450)
[2020-01-27] MEDS: DOCUSATE SODIUM 100 MG CAPSULE PO SCH ×2 (08:17→20:45)
[2020-01-27] MEDS: FAMOTIDINE 20 MG TABLET PO SCH ×3 (08:17→20:50)
[2020-01-27] MEDS: INSULIN GLARGINE,HUM.REC.ANLOG 100 UNITS/ML SQ SCH ×2 (08:17→20:45)
[2020-01-27 08:40] VITALS: BP 156/87
[2020-01-27 11:38] VITALS: BP 140/78
[2020-01-27 12:12] LABS: GLUCOMETER DEV NAME(LOC) 5S.2B; GLUCOSE,POINT OF CARE 179 MG/DL (70-110)
[2020-01-27 15:50] VITALS: BP 147/82
[2020-01-27 19:59] VITALS: BP 156/88
[2020-01-27] MEDS: OXYGEN THERAPY IH SCH (20:00)
[2020-01-27 23:44] LABS: GLUCOMETER DEV NAME(LOC) 5S.1; GLUCOSE,POINT OF CARE 164 MG/DL (70-110)
[2020-01-28 00:11] VITALS: BP 150/92
[2020-01-28 04:49] VITALS: BP 148/88
[2020-01-28 05:58] LABS: GLUCOMETER DEV NAME(LOC) 5S.2B; GLUCOSE,POINT OF CARE 151 MG/DL (70-110)
[2020-01-28 06:04] LABS: BASOPHILS % (AUTO) 1.1 % (0.0-2.0); EOSINOPHILS % (AUTO) 2.4 % (1.0-6.0); HEMATOCRIT 28.3 % (41-53); HEMOGLOBIN 9.8 g/dL (13.5-17.5); LYMPHOCYTES # (AUTO) 2.8 K/uL (1.0-4.8); LYMPHOCYTES % (AUTO) 24.4 % (22.0-44.0); MEAN CORPUSCULAR HEMOGLOBIN 30.2 pg (26.0-34.0); MEAN CORPUSCULAR HGB CONC 34.4 G/dL (31.0-37.0); MEAN CORPUSCULAR VOLUME 88 fL (80-100); MONOCYTES # (AUTO) 0.9 K/uL (0.1-1.0); MONOCYTES % (AUTO) 8.1 % (2.0-9.0); NEUTROPHILS # (AUTO) 7.5 K/uL (1.8-7.7); RED BLOOD CELL COUNT(AUTO) 3.23 MIL/uL (4.50-5.90)
[2020-01-28] MEDS: MEROPENEM 2 GM in SODIUM CHLORIDE 0.9% 100 ML IV SCH ×3 (06:14→23:50)
[2020-01-28] MEDS: INSULIN LISPRO 100 UNITS/ML SQ PRN ×3 (06:14→20:37)
[2020-01-28 07:04] LABS: ALBUMIN 1.8 g/dL (3.4-5.0); BILIRUBIN,TOTAL 0.3 mg/dL (0.1-1.0); CALCIUM, TOTAL 8.6 mg/dL (8.8-10.5); CREATININE 2.06 mg/dL (0.60-1.30); POTASSIUM 4.8 mmol/L (3.5-5.1); TOTAL PROTEIN, SERUM 7.8 g/dL (6.4-8.2)
[2020-01-28 07:31] LABS: PLATELET COUNT (AUTO) 858 K/uL (150-450)
[2020-01-28 07:47] LABS: GLUCOMETER DEV NAME(LOC) 5S.2B; GLUCOSE,POINT OF CARE 150 MG/DL (70-110)
[2020-01-28 08:18] VITALS: BP 143/86
[2020-01-28] MEDS: HEPARIN SODIUM,PORCINE 5,000 UNITS/ML VIAL SQ SCH ×3 (08:51→23:49)
[2020-01-28] MEDS: FAMOTIDINE 20 MG TABLET PO SCH ×2 (08:51→20:21)
[2020-01-28] MEDS: INSULIN GLARGINE,HUM.REC.ANLOG 100 UNITS/ML SQ SCH ×2 (08:52→20:36)
[2020-01-28] MEDS: DOCUSATE SODIUM 100 MG CAPSULE PO SCH ×2 (08:59→20:21)
[2020-01-28 11:33] LABS: GLUCOMETER DEV NAME(LOC) 5S.1; GLUCOSE,POINT OF CARE 139 MG/DL (70-110)
[2020-01-28 12:06] VITALS: BP 150/91
[2020-01-28 15:11] VITALS: BP 148/84
[2020-01-28 17:51] LABS: GLUCOMETER DEV NAME(LOC) 5S.2B; GLUCOSE,POINT OF CARE 170 MG/DL (70-110)
[2020-01-28 19:40] VITALS: BP 158/74
[2020-01-28] MEDS: OXYGEN THERAPY IH SCH (20:00)
[2020-01-28] MEDS ORDERED: SODIUM CHLORIDE 0.9% 250 ML IV ONE (23:46)
[2020-01-29 00:30] VITALS: BP 154/72
[2020-01-29 04:21] VITALS: BP 136/81
[2020-01-29] MEDS: MEROPENEM 2 GM in SODIUM CHLORIDE 0.9% 100 ML IV SCH ×2 (06:17→16:14)
[2020-01-29 06:50] LABS: BASOPHILS % (AUTO) 1.6 % (0.0-2.0); EOSINOPHILS % (AUTO) 2.7 % (1.0-6.0); HEMATOCRIT 29.5 % (41-53); HEMOGLOBIN 9.8 g/dL (13.5-17.5); LYMPHOCYTES # (AUTO) 2.2 K/uL (1.0-4.8); LYMPHOCYTES % (AUTO) 21.2 % (22.0-44.0); MEAN CORPUSCULAR HEMOGLOBIN 29.2 pg (26.0-34.0); MEAN CORPUSCULAR HGB CONC 33.2 G/dL (31.0-37.0); MEAN CORPUSCULAR VOLUME 88 fL (80-100); MONOCYTES # (AUTO) 0.8 K/uL (0.1-1.0); MONOCYTES % (AUTO) 7.6 % (2.0-9.0); NEUTROPHILS # (AUTO) 7.1 K/uL (1.8-7.7); NEUTROPHILS % (AUTO) 66.9 % (40.0-70.0); RED BLOOD CELL COUNT(AUTO) 3.36 MIL/uL (4.50-5.90); RED CELL DISTRIBUTION WIDTH 14.9 % (11.5-14.5)
[2020-01-29 07:14] VITALS: BP 160/91
[2020-01-29 07:24] LABS: ALBUMIN 1.8 g/dL (3.4-5.0); BILIRUBIN,TOTAL 0.3 mg/dL (0.1-1.0); CALCIUM, TOTAL 8.4 mg/dL (8.8-10.5); CREATININE 2.11 mg/dL (0.60-1.30); PLATELET COUNT (AUTO) 864 K/uL (150-450); POTASSIUM 4.8 mmol/L (3.5-5.1); TOTAL PROTEIN, SERUM 7.5 g/dL (6.4-8.2)
[2020-01-29 08:17] LABS: GLUCOMETER DEV NAME(LOC) 5S.2B; GLUCOSE,POINT OF CARE 136 MG/DL (70-110)
[2020-01-29] MEDS: MULTIVITAMINS, THERAPEUTIC TABLET PO SCH (08:55)
[2020-01-29] MEDS: FAMOTIDINE 20 MG TABLET PO SCH ×2 (08:55→21:08)
[2020-01-29] MEDS: DOCUSATE SODIUM 100 MG CAPSULE PO SCH ×2 (08:56→21:08)
[2020-01-29] MEDS: ZINC SULFATE 220 MG CAPSULE PO SCH (08:56)
[2020-01-29] MEDS: HEPARIN SODIUM,PORCINE 5,000 UNITS/ML VIAL SQ SCH ×3 (08:57→23:31)
[2020-01-29] MEDS: INSULIN GLARGINE,HUM.REC.ANLOG 100 UNITS/ML SQ SCH ×2 (09:08→21:13)
[2020-01-29 10:02] LABS: GLUCOMETER DEV NAME(LOC) 5S.1; GLUCOSE,POINT OF CARE 215 MG/DL (70-110)
[2020-01-29 11:10] VITALS: BP 143/86
[2020-01-29] MEDS: INSULIN LISPRO 100 UNITS/ML SQ PRN ×3 (11:26→21:14)
[2020-01-29 12:11] LABS: GLUCOMETER DEV NAME(LOC) 5S.2B; GLUCOSE,POINT OF CARE 170 MG/DL (70-110)
[2020-01-29 16:49] VITALS: BP 154/89
[2020-01-29 19:41] VITALS: BP 148/80
[2020-01-29 22:42] LABS: GLUCOMETER DEV NAME(LOC) 5S.1; GLUCOSE,POINT OF CARE 164 MG/DL (70-110)
[2020-01-29 22:42] LABS: GLUCOMETER DEV NAME(LOC) 5S.1; GLUCOSE,POINT OF CARE 202 MG/DL (70-110)
[2020-01-30 00:09] VITALS: BP 142/68
[2020-01-30 05:03] VITALS: BP 152/93
[2020-01-30] MEDS: MEROPENEM 2 GM in SODIUM CHLORIDE 0.9% 100 ML IV SCH ×2 (05:06→16:44)
[2020-01-30] MEDS: INSULIN LISPRO 100 UNITS/ML SQ PRN ×4 (06:03→20:32)
[2020-01-30 07:33] LABS: GLUCOMETER DEV NAME(LOC) 5S.1; GLUCOSE,POINT OF CARE 145 MG/DL (70-110)
[2020-01-30 08:01] LABS: ALBUMIN 1.9 g/dL (3.4-5.0); BILIRUBIN,TOTAL 0.3 mg/dL (0.1-1.0); C-REACTIVE PROTEIN QUANT 2.76 mg/dL (0.00-0.30); CALCIUM, TOTAL 8.5 mg/dL (8.8-10.5); CREATININE 1.99 mg/dL (0.60-1.30); POTASSIUM 4.9 mmol/L (3.5-5.1); TOTAL PROTEIN, SERUM 7.8 g/dL (6.4-8.2)
[2020-01-30 08:07] VITALS: BP 142/81
[2020-01-30] MEDS: FAMOTIDINE 20 MG TABLET PO SCH ×2 (08:18→20:33)
[2020-01-30] MEDS: ZINC SULFATE 220 MG CAPSULE PO SCH (08:18)
[2020-01-30] MEDS: MULTIVITAMINS, THERAPEUTIC TABLET PO SCH (08:18)
[2020-01-30] MEDS: DOCUSATE SODIUM 100 MG CAPSULE PO SCH ×2 (08:19→20:41)
[2020-01-30] MEDS: HEPARIN SODIUM,PORCINE 5,000 UNITS/ML VIAL SQ SCH ×3 (08:19→23:33)
[2020-01-30] MEDS: INSULIN GLARGINE,HUM.REC.ANLOG 100 UNITS/ML SQ SCH ×2 (08:26→20:36)
[2020-01-30 08:54] LABS: BASOPHILS % (AUTO) 2.2 % (0.0-2.0); EOSINOPHILS % (AUTO) 3.2 % (1.0-6.0); HEMATOCRIT 29.8 % (41-53); LYMPHOCYTES # (AUTO) 2.8 K/uL (1.0-4.8); LYMPHOCYTES % (AUTO) 24.9 % (22.0-44.0); MEAN CORPUSCULAR HEMOGLOBIN 29.6 pg (26.0-34.0); MEAN CORPUSCULAR HGB CONC 33.6 G/dL (31.0-37.0); MEAN CORPUSCULAR VOLUME 88 fL (80-100); MONOCYTES # (AUTO) 0.8 K/uL (0.1-1.0); MONOCYTES % (AUTO) 7.1 % (2.0-9.0); NEUTROPHILS # (AUTO) 7.1 K/uL (1.8-7.7); NEUTROPHILS % (AUTO) 62.6 % (40.0-70.0); RED BLOOD CELL COUNT(AUTO) 3.38 MIL/uL (4.50-5.90); RED CELL DISTRIBUTION WIDTH 14.6 % (11.5-14.5)
[2020-01-30 08:58] LABS: PLATELET COUNT (AUTO) 897 K/uL (150-450)
[2020-01-30 11:08] VITALS: BP 146/85
[2020-01-30 15:15] VITALS: BP 144/89
[2020-01-30 20:23] VITALS: BP 159/100
[2020-01-30] MEDS: MetroNIDAZOLE 500 MG TABLET PO SCH (20:33)
[2020-01-30 21:58] LABS: GLUCOMETER DEV NAME(LOC) 5S.2B; GLUCOSE,POINT OF CARE 155 MG/DL (70-110)
[2020-01-30 21:58] LABS: GLUCOMETER DEV NAME(LOC) 5S.1; GLUCOSE,POINT OF CARE 151 MG/DL (70-110)
[2020-01-30 21:58] LABS: GLUCOMETER DEV NAME(LOC) 5S.1; GLUCOSE,POINT OF CARE 153 MG/DL (70-110)
[2020-01-30 21:59] LABS: GLUCOMETER DEV NAME(LOC) 5S.1; GLUCOSE,POINT OF CARE 156 MG/DL (70-110)
[2020-01-31 00:24] VITALS: BP 115/67
[2020-01-31] MEDS: MEROPENEM 2 GM in SODIUM CHLORIDE 0.9% 100 ML IV SCH ×2 (04:02→17:45)
[2020-01-31 04:14] VITALS: BP 145/92
[2020-01-31] MEDS: INSULIN LISPRO 100 UNITS/ML SQ PRN ×4 (06:29→21:03)
[2020-01-31 06:42] LABS: ALBUMIN 2.1 g/dL (3.4-5.0); BILIRUBIN,TOTAL 0.3 mg/dL (0.1-1.0); CALCIUM, TOTAL 8.6 mg/dL (8.8-10.5); CREATININE 2.28 mg/dL (0.60-1.30); POTASSIUM 5.3 mmol/L (3.5-5.1)
[2020-01-31 07:16] LABS: BASOPHILS % (AUTO) 1.9 % (0.0-2.0); EOSINOPHILS % (AUTO) 3.1 % (1.0-6.0); HEMATOCRIT 30.7 % (41-53); LYMPHOCYTES % (AUTO) 26.3 % (22.0-44.0); MEAN CORPUSCULAR HEMOGLOBIN 29.2 pg (26.0-34.0); MEAN CORPUSCULAR HGB CONC 32.6 G/dL (31.0-37.0); MEAN CORPUSCULAR VOLUME 90 fL (80-100); MONOCYTES # (AUTO) 0.9 K/uL (0.1-1.0); MONOCYTES % (AUTO) 8.4 % (2.0-9.0); NEUTROPHILS # (AUTO) 6.8 K/uL (1.8-7.7); NEUTROPHILS % (AUTO) 60.3 % (40.0-70.0); RED BLOOD CELL COUNT(AUTO) 3.43 MIL/uL (4.50-5.90); RED CELL DISTRIBUTION WIDTH 14.8 % (11.5-14.5)
[2020-01-31 07:56] LABS: GLUCOMETER DEV NAME(LOC) 5S.2B; GLUCOSE,POINT OF CARE 158 MG/DL (70-110)
[2020-01-31 08:08] LABS: PLATELET COUNT (AUTO) 852 K/uL (150-450)
[2020-01-31] MEDS: HEPARIN SODIUM,PORCINE 5,000 UNITS/ML VIAL SQ SCH ×2 (08:39→17:14)
[2020-01-31] MEDS: MetroNIDAZOLE 500 MG TABLET PO SCH ×3 (08:39→20:21)
[2020-01-31] MEDS: MULTIVITAMINS, THERAPEUTIC TABLET PO SCH (08:39)
[2020-01-31] MEDS: ZINC SULFATE 220 MG CAPSULE PO SCH (08:40)
[2020-01-31] MEDS: FAMOTIDINE 20 MG TABLET PO SCH ×2 (08:40→20:21)
[2020-01-31] MEDS: INSULIN GLARGINE,HUM.REC.ANLOG 100 UNITS/ML SQ SCH ×2 (08:42→21:06)
[2020-01-31] MEDS: DOCUSATE SODIUM 100 MG CAPSULE PO SCH ×2 (08:52→21:00)
[2020-01-31 10:12] LABS: GLUCOMETER DEV NAME(LOC) 5S.1; GLUCOSE,POINT OF CARE 146 MG/DL (70-110)
[2020-01-31 11:40] VITALS: BP 136/91
[2020-01-31] MEDS ORDERED: SODIUM CHLORIDE 0.9% 2,700 ML IV ONE (11:45)
[2020-01-31] MEDS: SODIUM CHLORIDE 0.9% 1,000 ML IV SCH (11:52)
[2020-01-31 12:39] LABS: GLUCOMETER DEV NAME(LOC) 5S.1; GLUCOSE,POINT OF CARE 143 MG/DL (70-110)
[2020-01-31] MEDS: MORPHINE SULFATE 4 MG/ML SYRINGE IVP PRN (14:42)
[2020-01-31 19:53] VITALS: BP 136/82
[2020-01-31 23:50] VITALS: BP 137/84
[2020-02-01] MEDS: HEPARIN SODIUM,PORCINE 5,000 UNITS/ML VIAL SQ SCH ×4 (00:38→23:59)
[2020-02-01 01:41] LABS: GLUCOMETER DEV NAME(LOC) 5S.2B; GLUCOSE,POINT OF CARE 174 MG/DL (70-110)
[2020-02-01 01:42] LABS: GLUCOMETER DEV NAME(LOC) 5S.1; GLUCOSE,POINT OF CARE 222 MG/DL (70-110)
[2020-02-01] MEDS: SODIUM CHLORIDE 0.9% 1,000 ML IV SCH ×2 (02:01→15:41)
[2020-02-01] MEDS: MEROPENEM 2 GM in SODIUM CHLORIDE 0.9% 100 ML IV SCH ×2 (04:01→16:17)
[2020-02-01 04:44] VITALS: BP 135/89
[2020-02-01 06:50] LABS: GLUCOMETER DEV NAME(LOC) 5S.2B; GLUCOSE,POINT OF CARE 134 MG/DL (70-110)
[2020-02-01 07:10] LABS: BASOPHILS % (AUTO) 1.4 % (0.0-2.0); EOSINOPHILS % (AUTO) 3.1 % (1.0-6.0); HEMATOCRIT 30.8 % (41-53); HEMOGLOBIN 10.3 g/dL (13.5-17.5); LYMPHOCYTES # (AUTO) 3.2 K/uL (1.0-4.8); LYMPHOCYTES % (AUTO) 29.2 % (22.0-44.0); MEAN CORPUSCULAR HEMOGLOBIN 29.6 pg (26.0-34.0); MEAN CORPUSCULAR HGB CONC 33.4 G/dL (31.0-37.0); MEAN CORPUSCULAR VOLUME 89 fL (80-100); MONOCYTES # (AUTO) 0.9 K/uL (0.1-1.0); MONOCYTES % (AUTO) 8.3 % (2.0-9.0); NEUTROPHILS # (AUTO) 6.3 K/uL (1.8-7.7); RED BLOOD CELL COUNT(AUTO) 3.46 MIL/uL (4.50-5.90); RED CELL DISTRIBUTION WIDTH 14.9 % (11.5-14.5)
[2020-02-01] MEDS: DOCUSATE SODIUM 100 MG CAPSULE PO SCH ×2 (07:18→20:28)
[2020-02-01 07:25] VITALS: BP 151/87
[2020-02-01 07:42] LABS: PLATELET COUNT (AUTO) 783 K/uL (150-450)
[2020-02-01 08:30] LABS: POTASSIUM 4.8 mmol/L (3.5-5.1)
[2020-02-01 08:36] LABS: ALBUMIN 2.2 g/dL (3.4-5.0); BILIRUBIN,TOTAL 0.3 mg/dL (0.1-1.0); TOTAL PROTEIN, SERUM 8.3 g/dL (6.4-8.2)
[2020-02-01] MEDS: INSULIN GLARGINE,HUM.REC.ANLOG 100 UNITS/ML SQ SCH ×2 (09:18→20:26)
[2020-02-01] MEDS: MULTIVITAMINS, THERAPEUTIC TABLET PO SCH (09:18)
[2020-02-01] MEDS: FAMOTIDINE 20 MG TABLET PO SCH ×2 (09:18→20:26)
[2020-02-01] MEDS: ZINC SULFATE 220 MG CAPSULE PO SCH (09:18)
[2020-02-01] MEDS: MetroNIDAZOLE 500 MG TABLET PO SCH ×3 (09:18→20:26)
[2020-02-01 11:20] VITALS: BP 142/88
[2020-02-01] MEDS: INSULIN LISPRO 100 UNITS/ML SQ PRN ×2 (11:29→20:25)
[2020-02-01 16:05] VITALS: BP 135/91
[2020-02-01 19:45] VITALS: BP 139/87
[2020-02-02 00:12] LABS: GLUCOMETER DEV NAME(LOC) 5S.2B; GLUCOSE,POINT OF CARE 159 MG/DL (70-110)
[2020-02-02 00:12] LABS: GLUCOMETER DEV NAME(LOC) 5S.1; GLUCOSE,POINT OF CARE 139 MG/DL (70-110)
[2020-02-02 00:13] LABS: GLUCOMETER DEV NAME(LOC) 5S.2B; GLUCOSE,POINT OF CARE 143 MG/DL (70-110)
[2020-02-02 00:30] VITALS: BP 148/99
[2020-02-02] MEDS: MEROPENEM 2 GM in SODIUM CHLORIDE 0.9% 100 ML IV SCH ×2 (03:05→16:39)
[2020-02-02] MEDS: SODIUM CHLORIDE 0.9% 1,000 ML IV SCH ×2 (03:05→16:38)
[2020-02-02 04:45] VITALS: BP 146/80
[2020-02-02 06:26] LABS: BASOPHILS % (AUTO) 1.6 % (0.0-2.0); EOSINOPHILS % (AUTO) 4.1 % (1.0-6.0); HEMOGLOBIN 10.4 g/dL (13.5-17.5); LYMPHOCYTES # (AUTO) 2.9 K/uL (1.0-4.8); MEAN CORPUSCULAR HEMOGLOBIN 30.5 pg (26.0-34.0); MEAN CORPUSCULAR HGB CONC 34.6 G/dL (31.0-37.0); MEAN CORPUSCULAR VOLUME 88 fL (80-100); MONOCYTES # (AUTO) 0.7 K/uL (0.1-1.0); MONOCYTES % (AUTO) 6.4 % (2.0-9.0); NEUTROPHILS # (AUTO) 6.5 K/uL (1.8-7.7); NEUTROPHILS % (AUTO) 60.9 % (40.0-70.0); PLATELET COUNT (AUTO) 735 K/uL (150-450); RED CELL DISTRIBUTION WIDTH 14.8 % (11.5-14.5)
[2020-02-02 07:01] LABS: BILIRUBIN,TOTAL 0.3 mg/dL (0.1-1.0); CALCIUM, TOTAL 8.1 mg/dL (8.8-10.5); CREATININE 1.87 mg/dL (0.60-1.30); POTASSIUM 4.4 mmol/L (3.5-5.1); TOTAL PROTEIN, SERUM 7.3 g/dL (6.4-8.2)
[2020-02-02 07:30] VITALS: BP 153/94
[2020-02-02] MEDS: MULTIVITAMINS, THERAPEUTIC TABLET PO SCH (08:25)
[2020-02-02] MEDS: FAMOTIDINE 20 MG TABLET PO SCH ×2 (08:25→21:05)
[2020-02-02] MEDS: DOCUSATE SODIUM 100 MG CAPSULE PO SCH ×2 (08:25→22:41)
[2020-02-02] MEDS: MetroNIDAZOLE 500 MG TABLET PO SCH ×3 (08:25→21:05)
[2020-02-02] MEDS: ZINC SULFATE 220 MG CAPSULE PO SCH (08:25)
[2020-02-02] MEDS: HEPARIN SODIUM,PORCINE 5,000 UNITS/ML VIAL SQ SCH ×2 (08:26→16:38)
[2020-02-02] MEDS: INSULIN GLARGINE,HUM.REC.ANLOG 100 UNITS/ML SQ SCH ×2 (08:32→21:08)
[2020-02-02 09:15] LABS: GLUCOMETER DEV NAME(LOC) 5S.2B; GLUCOSE,POINT OF CARE 118 MG/DL (70-110)
[2020-02-02] MEDS: HYDROCODONE/ACETAMINOPHEN 5-325 MG TABLET PO PRN (12:47)
[2020-02-02 16:32] VITALS: BP 140/85
[2020-02-02] MEDS: INSULIN LISPRO 100 UNITS/ML SQ PRN ×2 (17:33→21:07)
[2020-02-02 21:02] VITALS: BP 157/91
[2020-02-02 22:17] LABS: COVID AG,FIA SOURCE NASAL SWAB
[2020-02-03] MEDS: HEPARIN SODIUM,PORCINE 5,000 UNITS/ML VIAL SQ SCH ×3 (00:07→17:11)
[2020-02-03] MEDS: MEROPENEM 2 GM in SODIUM CHLORIDE 0.9% 100 ML IV SCH ×2 (04:04→17:11)
[2020-02-03 06:50] VITALS: BP 163/104
[2020-02-03 06:52] LABS: GLUCOMETER DEV NAME(LOC) 5S.2B; GLUCOSE,POINT OF CARE 133 MG/DL (70-110)
[2020-02-03 06:53] LABS: GLUCOMETER DEV NAME(LOC) 5S.2B; GLUCOSE,POINT OF CARE 164 MG/DL (70-110)
[2020-02-03 07:50] LABS: GLUCOMETER DEV NAME(LOC) 6N.1; GLUCOSE,POINT OF CARE 112 MG/DL (70-110)
[2020-02-03 07:50] LABS: GLUCOMETER DEV NAME(LOC) 6N.1; GLUCOSE,POINT OF CARE 169 MG/DL (70-110)
[2020-02-03 08:00] VITALS: BP 160/99
[2020-02-03] MEDS: DOCUSATE SODIUM 100 MG CAPSULE PO SCH ×3 (08:24→21:00)
[2020-02-03] MEDS: SODIUM CHLORIDE 0.9% 1,000 ML IV SCH (08:24)
[2020-02-03] MEDS: MetroNIDAZOLE 500 MG TABLET PO SCH ×3 (08:24→21:02)
[2020-02-03] MEDS: ZINC SULFATE 220 MG CAPSULE PO SCH (08:25)
[2020-02-03] MEDS: MULTIVITAMINS, THERAPEUTIC TABLET PO SCH (08:25)
[2020-02-03] MEDS: FAMOTIDINE 20 MG TABLET PO SCH ×2 (08:25→21:02)
[2020-02-03] MEDS: INSULIN GLARGINE,HUM.REC.ANLOG 100 UNITS/ML SQ SCH ×2 (08:42→21:07)
[2020-02-03] MEDS ORDERED: AmLODIPine BESYLATE 5 MG TABLET PO ONE (09:15)
[2020-02-03 09:30] VITALS: BP 158/88
[2020-02-03] MEDS: INSULIN LISPRO 100 UNITS/ML SQ PRN ×2 (11:57→21:08)
[2020-02-03 12:00] VITALS: BP 158/99
[2020-02-03 15:28] VITALS: BP 148/83
[2020-02-03 18:37] LABS: GLUCOMETER DEV NAME(LOC) 4E.2; GLUCOSE,POINT OF CARE 128 MG/DL (70-110)
[2020-02-03 18:37] LABS: GLUCOMETER DEV NAME(LOC) 6N.1; GLUCOSE,POINT OF CARE 177 MG/DL (70-110)
[2020-02-03 19:46] VITALS: BP 155/94
[2020-02-03 23:25] LABS: GLUCOMETER DEV NAME(LOC) 6N.1; GLUCOSE,POINT OF CARE 153 MG/DL (70-110)
[2020-02-04] MEDS: HEPARIN SODIUM,PORCINE 5,000 UNITS/ML VIAL SQ SCH ×4 (00:15→23:58)
[2020-02-04] MEDS: SODIUM CHLORIDE 0.9% 1,000 ML IV SCH ×2 (00:15→20:50)
[2020-02-04 00:55] VITALS: BP 148/85
[2020-02-04] MEDS: MEROPENEM 2 GM in SODIUM CHLORIDE 0.9% 100 ML IV SCH ×2 (03:57→15:41)
[2020-02-04 05:09] VITALS: BP 158/99
[2020-02-04 07:57] VITALS: BP 157/94
[2020-02-04] MEDS: MULTIVITAMINS, THERAPEUTIC TABLET PO SCH (08:42)
[2020-02-04] MEDS: INSULIN GLARGINE,HUM.REC.ANLOG 100 UNITS/ML SQ SCH ×2 (08:42→20:57)
[2020-02-04] MEDS: FAMOTIDINE 20 MG TABLET PO SCH ×2 (08:42→20:53)
[2020-02-04] MEDS: MetroNIDAZOLE 500 MG TABLET PO SCH ×3 (08:43→20:52)
[2020-02-04] MEDS: ZINC SULFATE 220 MG CAPSULE PO SCH (08:43)
[2020-02-04] MEDS: DOCUSATE SODIUM 100 MG CAPSULE PO SCH ×3 (08:43→20:53)
[2020-02-04 10:35] LABS: GLUCOMETER DEV NAME(LOC) 4E.2; GLUCOSE,POINT OF CARE 110 MG/DL (70-110)
[2020-02-04 11:12] VITALS: BP 156/94
[2020-02-04 12:01] LABS: GLUCOMETER DEV NAME(LOC) 4E.2; GLUCOSE,POINT OF CARE 130 MG/DL (70-110)
[2020-02-04 15:37] VITALS: BP 144/92
[2020-02-04 17:22] LABS: GLUCOMETER DEV NAME(LOC) 4E.2; GLUCOSE,POINT OF CARE 135 MG/DL (70-110)
[2020-02-04 20:08] VITALS: BP 159/91
[2020-02-04] MEDS: INSULIN LISPRO 100 UNITS/ML SQ PRN (20:58)
[2020-02-04 21:26] LABS: GLUCOMETER DEV NAME(LOC) 4E.2; GLUCOSE,POINT OF CARE 198 MG/DL (70-110)
[2020-02-05] VITALS (7 sets, daily range): BP systolic 131–171; BP diastolic 75–102
[2020-02-05] MEDS ORDERED: CloNIDine HCL 0.1 MG TABLET PO ONE (00:45)
[2020-02-05] MEDS: PANTOPRAZOLE SODIUM 40 MG DR TABLET PO SCH ×2 (00:53→08:10)
[2020-02-05] MEDS: MEROPENEM 2 GM in SODIUM CHLORIDE 0.9% 100 ML IV SCH ×2 (03:53→15:17)
[2020-02-05 07:42] LABS: BILIRUBIN,TOTAL 0.3 mg/dL (0.1-1.0); C-REACTIVE PROTEIN QUANT 0.76 mg/dL (0.00-0.30); CALCIUM, TOTAL 8.5 mg/dL (8.8-10.5); CREATININE 1.83 mg/dL (0.60-1.30); POTASSIUM 4.6 mmol/L (3.5-5.1)
[2020-02-05] MEDS: HEPARIN SODIUM,PORCINE 5,000 UNITS/ML VIAL SQ SCH ×2 (08:10→15:18)
[2020-02-05] MEDS: FAMOTIDINE 20 MG TABLET PO SCH ×2 (08:10→20:48)
[2020-02-05] MEDS: MULTIVITAMINS, THERAPEUTIC TABLET PO SCH (08:10)
[2020-02-05] MEDS: MetroNIDAZOLE 500 MG TABLET PO SCH ×3 (08:10→20:48)
[2020-02-05] MEDS: NIFEdipine 30 MG ER TABLET PO SCH (08:11)
[2020-02-05] MEDS: DOCUSATE SODIUM 100 MG CAPSULE PO SCH ×2 (09:00→20:47)
[2020-02-05] MEDS: ZINC SULFATE 220 MG CAPSULE PO SCH (09:32)
[2020-02-05] MEDS: INSULIN GLARGINE,HUM.REC.ANLOG 100 UNITS/ML SQ SCH ×2 (09:33→20:54)
[2020-02-05 11:29] LABS: GLUCOMETER DEV NAME(LOC) 6N.1; GLUCOSE,POINT OF CARE 133 MG/DL (70-110)
[2020-02-05] MEDS: INSULIN LISPRO 100 UNITS/ML SQ PRN ×2 (11:34→20:57)
[2020-02-05] MEDS: SODIUM CHLORIDE 0.9% 1,000 ML IV SCH (12:22)
[2020-02-05 17:50] LABS: GLUCOMETER DEV NAME(LOC) 6N.1; GLUCOSE,POINT OF CARE 161 MG/DL (70-110)
[2020-02-05 18:02] LABS: GLUCOMETER DEV NAME(LOC) 4E.2; GLUCOSE,POINT OF CARE 128 MG/DL (70-110)
[2020-02-06] MEDS: HEPARIN SODIUM,PORCINE 5,000 UNITS/ML VIAL SQ SCH ×4 (00:14→23:13)
[2020-02-06 00:38] VITALS: BP 121/78
[2020-02-06 02:40] LABS: GLUCOMETER DEV NAME(LOC) 4E.2; GLUCOSE,POINT OF CARE 172 MG/DL (70-110)
[2020-02-06] MEDS: MEROPENEM 2 GM in SODIUM CHLORIDE 0.9% 100 ML IV SCH ×2 (03:26→16:18)
[2020-02-06] MEDS: SODIUM CHLORIDE 0.9% 1,000 ML IV SCH ×2 (03:33→16:26)
[2020-02-06 04:00] VITALS: BP 122/83
[2020-02-06 07:35] VITALS: BP 136/85
[2020-02-06] MEDS: PANTOPRAZOLE SODIUM 40 MG DR TABLET PO SCH (09:14)
[2020-02-06] MEDS: ZINC SULFATE 220 MG CAPSULE PO SCH (09:14)
[2020-02-06] MEDS: MetroNIDAZOLE 500 MG TABLET PO SCH ×3 (09:14→21:06)
[2020-02-06] MEDS: NIFEdipine 30 MG ER TABLET PO SCH (09:14)
[2020-02-06] MEDS: MULTIVITAMINS, THERAPEUTIC TABLET PO SCH (09:14)
[2020-02-06] MEDS: FAMOTIDINE 20 MG TABLET PO SCH ×2 (09:14→21:06)
[2020-02-06] MEDS: DOCUSATE SODIUM 100 MG CAPSULE PO SCH ×3 (09:15→21:06)
[2020-02-06] MEDS: INSULIN GLARGINE,HUM.REC.ANLOG 100 UNITS/ML SQ SCH ×2 (09:23→21:40)
[2020-02-06 10:19] LABS: GLUCOMETER DEV NAME(LOC) 6N.1; GLUCOSE,POINT OF CARE 100 MG/DL (70-110)
[2020-02-06] MEDS: INSULIN LISPRO 100 UNITS/ML SQ PRN ×2 (11:33→21:41)
[2020-02-06 15:18] VITALS: BP 150/83
[2020-02-06 18:53] LABS: GLUCOMETER DEV NAME(LOC) 6N.1; GLUCOSE,POINT OF CARE 120 MG/DL (70-110)
[2020-02-06 18:53] LABS: GLUCOMETER DEV NAME(LOC) 6N.1; GLUCOSE,POINT OF CARE 137 MG/DL (70-110)
[2020-02-06 19:45] VITALS: BP 136/80
[2020-02-06 23:21] LABS: GLUCOMETER DEV NAME(LOC) 6N.1; GLUCOSE,POINT OF CARE 176 MG/DL (70-110)
[2020-02-06 23:48] VITALS: BP 129/75
[2020-02-07] MEDS: SODIUM CHLORIDE 0.9% 1,000 ML IV SCH ×2 (03:47→16:34)
[2020-02-07] MEDS: MEROPENEM 2 GM in SODIUM CHLORIDE 0.9% 100 ML IV SCH ×2 (03:49→16:19)
[2020-02-07 05:00] VITALS: BP 140/75
[2020-02-07 06:36] LABS: GLUCOMETER DEV NAME(LOC) 6N.1; GLUCOSE,POINT OF CARE 122 MG/DL (70-110)
[2020-02-07 06:57] LABS: C-REACTIVE PROTEIN QUANT 0.53 mg/dL (0.00-0.30); CALCIUM, TOTAL 9.1 mg/dL (8.8-10.5); CREATININE 1.94 mg/dL (0.60-1.30); POTASSIUM 4.5 mmol/L (3.5-5.1)
[2020-02-07] MEDS: HEPARIN SODIUM,PORCINE 5,000 UNITS/ML VIAL SQ SCH ×3 (08:00→23:42)
[2020-02-07] MEDS: FAMOTIDINE 20 MG TABLET PO SCH ×2 (08:17→19:43)
[2020-02-07] MEDS: MetroNIDAZOLE 500 MG TABLET PO SCH ×3 (08:17→19:43)
[2020-02-07] MEDS: NIFEdipine 30 MG ER TABLET PO SCH (08:18)
[2020-02-07] MEDS: ZINC SULFATE 220 MG CAPSULE PO SCH (08:18)
[2020-02-07] MEDS: MULTIVITAMINS, THERAPEUTIC TABLET PO SCH (08:18)
[2020-02-07] MEDS: DOCUSATE SODIUM 100 MG CAPSULE PO SCH ×3 (08:18→20:38)
[2020-02-07] MEDS: PANTOPRAZOLE SODIUM 40 MG DR TABLET PO SCH (08:18)
[2020-02-07] MEDS: INSULIN GLARGINE,HUM.REC.ANLOG 100 UNITS/ML SQ SCH ×2 (08:31→20:42)
[2020-02-07 08:53] VITALS: BP 142/84
[2020-02-07 11:09] VITALS: BP 127/80
[2020-02-07 13:54] LABS: GLUCOMETER DEV NAME(LOC) 6N.1; GLUCOSE,POINT OF CARE 123 MG/DL (70-110)
[2020-02-07 16:43] VITALS: BP 138/85
[2020-02-07] MEDS: INSULIN LISPRO 100 UNITS/ML SQ PRN ×2 (17:23→20:42)
[2020-02-07 18:19] LABS: GLUCOMETER DEV NAME(LOC) 4E.2; GLUCOSE,POINT OF CARE 142 MG/DL (70-110)
[2020-02-07 20:00] VITALS: BP 141/83
[2020-02-08 00:05] VITALS: BP 149/77
[2020-02-08 01:54] LABS: GLUCOMETER DEV NAME(LOC) 6N.1; GLUCOSE,POINT OF CARE 174 MG/DL (70-110)
[2020-02-08] MEDS: MEROPENEM 2 GM in SODIUM CHLORIDE 0.9% 100 ML IV SCH ×2 (03:59→16:08)
[2020-02-08] MEDS: SODIUM CHLORIDE 0.9% 1,000 ML IV SCH (04:00)
[2020-02-08 04:12] VITALS: BP 147/84
[2020-02-08 05:18] LABS: COVID AG,FIA SOURCE NASOPHARYNGEAL
[2020-02-08] MEDS ORDERED: SODIUM CHLORIDE 0.9% 1,000 ML IV ONE (05:45)
[2020-02-08] MEDS ORDERED: SODIUM CHLORIDE 0.9% 1,000 ML ONE (05:54)
[2020-02-08] MEDS ORDERED: LIDOCAINE/PF 1% 30 ML VIAL ONE (06:51)
[2020-02-08] MEDS ORDERED: BUPIVACAINE HCL 0.5% 50 ML VIAL ONE (06:51)
[2020-02-08 06:52] LABS: BASOPHILS % (AUTO) 1.1 % (0.0-2.0); EOSINOPHILS % (AUTO) 10.7 % (1.0-6.0); HEMATOCRIT 31.7 % (41-53); HEMOGLOBIN 10.3 g/dL (13.5-17.5); LYMPHOCYTES # (AUTO) 2.4 K/uL (1.0-4.8); LYMPHOCYTES % (AUTO) 23.6 % (22.0-44.0); MEAN CORPUSCULAR HEMOGLOBIN 29.1 pg (26.0-34.0); MEAN CORPUSCULAR HGB CONC 32.5 G/dL (31.0-37.0); MEAN CORPUSCULAR VOLUME 89 fL (80-100); MONOCYTES % (AUTO) 9.4 % (2.0-9.0); NEUTROPHILS # (AUTO) 5.6 K/uL (1.8-7.7); NEUTROPHILS % (AUTO) 55.2 % (40.0-70.0); PLATELET COUNT (AUTO) 410 K/uL (150-450); RED BLOOD CELL COUNT(AUTO) 3.54 MIL/uL (4.50-5.90); RED CELL DISTRIBUTION WIDTH 16.3 % (11.5-14.5)
[2020-02-08] MEDS ORDERED: BUPIVACAINE HCL/PF 0.25% 30 ML VIAL ONE (07:09)
[2020-02-08 07:16] LABS: PROTHROMBIN TIME 10.8 SEC (9.4-11.6)
[2020-02-08] MEDS ORDERED: SODIUM CL IRRIG SOLN BAG 3,000 ML IRRIG ONE (07:20)
[2020-02-08] MEDS ORDERED: HYDROmorphone 2 MG/ML SYRINGE IVP PRN (08:00)
[2020-02-08] MEDS: HEPARIN SODIUM,PORCINE 5,000 UNITS/ML VIAL SQ SCH ×3 (08:00→23:37)
[2020-02-08] MEDS: OXYGEN THERAPY IH SCH (08:00)
[2020-02-08] MEDS ORDERED: FentaNYL CITRATE PF 100 MCG/2 ML VIAL IVP PRN (08:00)
[2020-02-08 09:13] LABS: GLUCOMETER DEV NAME(LOC) 4E.2; GLUCOSE,POINT OF CARE 159 MG/DL (70-110)
[2020-02-08] MEDS: FAMOTIDINE 20 MG TABLET PO SCH ×2 (10:35→20:17)
[2020-02-08] MEDS: MULTIVITAMINS, THERAPEUTIC TABLET PO SCH (10:36)
[2020-02-08] MEDS: DOCUSATE SODIUM 100 MG CAPSULE PO SCH ×2 (10:36→21:00)
[2020-02-08] MEDS: PANTOPRAZOLE SODIUM 40 MG DR TABLET PO SCH (10:36)
[2020-02-08] MEDS: NIFEdipine 30 MG ER TABLET PO SCH (10:36)
[2020-02-08] MEDS: MetroNIDAZOLE 500 MG TABLET PO SCH ×3 (10:36→20:17)
[2020-02-08] MEDS: INSULIN GLARGINE,HUM.REC.ANLOG 100 UNITS/ML SQ SCH ×2 (10:40→20:17)
[2020-02-08 10:47] VITALS: BP 121/73
[2020-02-08] MEDS: INSULIN LISPRO 100 UNITS/ML SQ PRN ×2 (12:07→20:17)
[2020-02-08 19:32] VITALS: BP 119/78
[2020-02-08 23:34] VITALS: BP 145/81
[2020-02-08] MEDS: HYDROCODONE/ACETAMINOPHEN 5-325 MG TABLET PO PRN (23:37)
[2020-02-08 23:40] LABS: GLUCOMETER DEV NAME(LOC) 6N.1; GLUCOSE,POINT OF CARE 140 MG/DL (70-110)
[2020-02-08 23:40] LABS: GLUCOMETER DEV NAME(LOC) 6N.1; GLUCOSE,POINT OF CARE 221 MG/DL (70-110)
[2020-02-09 00:24] LABS: GLUCOMETER DEV NAME(LOC) 4E.2; GLUCOSE,POINT OF CARE 172 MG/DL (70-110)
[2020-02-09] MEDS ORDERED: FentaNYL CITRATE PF 100 MCG/2 ML VIAL IVP ONE (02:42)
[2020-02-09] MEDS ORDERED: SUCCINYLCHOLINE CHLORIDE 20 MG/ML 10 ML VIAL IVP ONE (02:42)
[2020-02-09] MEDS ORDERED: LIDOCAINE/PF 2% 5 ML VIAL IM ONE (02:42)
[2020-02-09] MEDS ORDERED: PROPOFOL 1% 20 ML VIAL IVP ONE (02:42)
[2020-02-09] MEDS ORDERED: ONDANSETRON HCL 4 MG/2 ML VIAL IVP ONE (02:42)
[2020-02-09] MEDS ORDERED: MIDAZOLAM HCL 2 MG/2 ML VIAL IVP ONE (02:42)
[2020-02-09] MEDS: MEROPENEM 2 GM in SODIUM CHLORIDE 0.9% 100 ML IV SCH ×2 (04:27→16:02)
[2020-02-09] MEDS: SODIUM CHLORIDE 0.9% 1,000 ML IV SCH (04:27)
[2020-02-09 05:38] VITALS: BP 139/90
[2020-02-09 06:06] LABS: GLUCOMETER DEV NAME(LOC) 6N.1; GLUCOSE,POINT OF CARE 114 MG/DL (70-110)
[2020-02-09 08:13] LABS: BASOPHILS % (AUTO) 0.8 % (0.0-2.0); EOSINOPHILS % (AUTO) 12.3 % (1.0-6.0); HEMATOCRIT 31.6 % (41-53); HEMOGLOBIN 10.4 g/dL (13.5-17.5); LYMPHOCYTES # (AUTO) 2.4 K/uL (1.0-4.8); MEAN CORPUSCULAR HEMOGLOBIN 29.8 pg (26.0-34.0); MEAN CORPUSCULAR HGB CONC 32.9 G/dL (31.0-37.0); MEAN CORPUSCULAR VOLUME 91 fL (80-100); MONOCYTES # (AUTO) 0.9 K/uL (0.1-1.0); MONOCYTES % (AUTO) 8.3 % (2.0-9.0); NEUTROPHILS # (AUTO) 5.9 K/uL (1.8-7.7); NEUTROPHILS % (AUTO) 55.6 % (40.0-70.0); PLATELET COUNT (AUTO) 384 K/uL (150-450); RED BLOOD CELL COUNT(AUTO) 3.48 MIL/uL (4.50-5.90); RED CELL DISTRIBUTION WIDTH 16.4 % (11.5-14.5)
[2020-02-09 08:20] VITALS: BP 132/77
[2020-02-09] MEDS: HEPARIN SODIUM,PORCINE 5,000 UNITS/ML VIAL SQ SCH ×3 (08:35→23:42)
[2020-02-09 08:36] LABS: C-REACTIVE PROTEIN QUANT 1.87 mg/dL (0.00-0.30); CALCIUM, TOTAL 8.3 mg/dL (8.8-10.5); POTASSIUM 4.6 mmol/L (3.5-5.1)
[2020-02-09] MEDS: MULTIVITAMINS, THERAPEUTIC TABLET PO SCH (08:37)
[2020-02-09] MEDS: DOCUSATE SODIUM 100 MG CAPSULE PO SCH ×3 (08:37→20:28)
[2020-02-09] MEDS: FAMOTIDINE 20 MG TABLET PO SCH (08:37)
[2020-02-09] MEDS: MetroNIDAZOLE 500 MG TABLET PO SCH ×3 (08:37→20:28)
[2020-02-09] MEDS: PANTOPRAZOLE SODIUM 40 MG DR TABLET PO SCH (08:38)
[2020-02-09] MEDS: NIFEdipine 30 MG ER TABLET PO SCH (08:41)
[2020-02-09] MEDS: INSULIN GLARGINE,HUM.REC.ANLOG 100 UNITS/ML SQ SCH ×2 (08:43→21:24)
[2020-02-09 11:24] VITALS: BP 140/83
[2020-02-09 12:29] LABS: GLUCOMETER DEV NAME(LOC) 6N.1; GLUCOSE,POINT OF CARE 130 MG/DL (70-110)
[2020-02-09 15:41] VITALS: BP 139/75
[2020-02-09] MEDS: INSULIN LISPRO 100 UNITS/ML SQ PRN (17:46)
[2020-02-09 19:53] VITALS: BP 120/66
[2020-02-09 21:02] LABS: GLUCOMETER DEV NAME(LOC) 6N.1; GLUCOSE,POINT OF CARE 158 MG/DL (70-110)
[2020-02-09 23:15] LABS: GLUCOMETER DEV NAME(LOC) 6N.1; GLUCOSE,POINT OF CARE 169 MG/DL (70-110)
[2020-02-09 23:58] VITALS: BP 118/66
[2020-02-10] MEDS: MEROPENEM 2 GM in SODIUM CHLORIDE 0.9% 100 ML IV SCH ×2 (05:21→15:56)
[2020-02-10 05:30] VITALS: BP 130/79
[2020-02-10 06:43] LABS: BASOPHILS % (AUTO) 0.8 % (0.0-2.0); EOSINOPHILS % (AUTO) 13.9 % (1.0-6.0); HEMATOCRIT 29.7 % (41-53); HEMOGLOBIN 9.9 g/dL (13.5-17.5); LYMPHOCYTES # (AUTO) 2.4 K/uL (1.0-4.8); LYMPHOCYTES % (AUTO) 25.9 % (22.0-44.0); MEAN CORPUSCULAR HEMOGLOBIN 30.1 pg (26.0-34.0); MEAN CORPUSCULAR HGB CONC 33.4 G/dL (31.0-37.0); MEAN CORPUSCULAR VOLUME 90 fL (80-100); MONOCYTES # (AUTO) 0.9 K/uL (0.1-1.0); MONOCYTES % (AUTO) 9.9 % (2.0-9.0); NEUTROPHILS # (AUTO) 4.5 K/uL (1.8-7.7); NEUTROPHILS % (AUTO) 49.5 % (40.0-70.0); PLATELET COUNT (AUTO) 341 K/uL (150-450); RED CELL DISTRIBUTION WIDTH 16.9 % (11.5-14.5)
[2020-02-10 07:46] LABS: BILIRUBIN,TOTAL 0.5 mg/dL (0.1-1.0); CALCIUM, TOTAL 8.5 mg/dL (8.8-10.5); CREATININE 1.94 mg/dL (0.60-1.30); POTASSIUM 4.6 mmol/L (3.5-5.1); TOTAL PROTEIN, SERUM 6.9 g/dL (6.4-8.2)
[2020-02-10] MEDS: OXYGEN THERAPY IH SCH ×2 (08:00→20:00)
[2020-02-10 08:33] VITALS: BP 150/87
[2020-02-10] MEDS: HEPARIN SODIUM,PORCINE 5,000 UNITS/ML VIAL SQ SCH ×2 (08:59→15:56)
[2020-02-10] MEDS: PANTOPRAZOLE SODIUM 40 MG DR TABLET PO SCH (09:00)
[2020-02-10] MEDS: MULTIVITAMINS, THERAPEUTIC TABLET PO SCH (09:00)
[2020-02-10] MEDS: NIFEdipine 30 MG ER TABLET PO SCH (09:00)
[2020-02-10] MEDS: MetroNIDAZOLE 500 MG TABLET PO SCH ×3 (09:00→20:20)
[2020-02-10] MEDS: FAMOTIDINE 20 MG TABLET PO SCH (09:00)
[2020-02-10] MEDS: DOCUSATE SODIUM 100 MG CAPSULE PO SCH ×2 (09:00→20:16)
[2020-02-10] MEDS: INSULIN GLARGINE,HUM.REC.ANLOG 100 UNITS/ML SQ SCH ×2 (09:04→20:23)
[2020-02-10] MEDS: INSULIN LISPRO 100 UNITS/ML SQ PRN ×3 (12:08→20:23)
[2020-02-10] MEDS: SODIUM CHLORIDE 0.9% 1,000 ML IV SCH ×2 (12:09→20:25)
[2020-02-10 12:27] VITALS: BP 147/79
[2020-02-10 19:40] VITALS: BP 128/63
[2020-02-10 22:36] LABS: GLUCOMETER DEV NAME(LOC) 4E.2; GLUCOSE,POINT OF CARE 155 MG/DL (70-110)
[2020-02-10 23:11] VITALS: BP 122/72
[2020-02-11] MEDS: HEPARIN SODIUM,PORCINE 5,000 UNITS/ML VIAL SQ SCH ×3 (00:09→16:08)
[2020-02-11] MEDS: SODIUM CHLORIDE 0.9% 1,000 ML IV SCH ×2 (00:13→16:09)
[2020-02-11 04:37] VITALS: BP 142/84
[2020-02-11] MEDS: MEROPENEM 2 GM in SODIUM CHLORIDE 0.9% 100 ML IV SCH ×2 (04:40→16:08)
[2020-02-11 05:08] LABS: GLUCOMETER DEV NAME(LOC) 6N.1; GLUCOSE,POINT OF CARE 108 MG/DL (70-110)
[2020-02-11 05:08] LABS: GLUCOMETER DEV NAME(LOC) 6N.1; GLUCOSE,POINT OF CARE 134 MG/DL (70-110)
[2020-02-11 05:08] LABS: GLUCOMETER DEV NAME(LOC) 6N.1; GLUCOSE,POINT OF CARE 143 MG/DL (70-110)
[2020-02-11 05:10] LABS: GLUCOMETER DEV NAME(LOC) 4E.2; GLUCOSE,POINT OF CARE 136 MG/DL (70-110)
[2020-02-11 07:06] LABS: BASOPHILS % (AUTO) 0.9 % (0.0-2.0); EOSINOPHILS % (AUTO) 13.8 % (1.0-6.0); HEMATOCRIT 30.2 % (41-53); HEMOGLOBIN 9.9 g/dL (13.5-17.5); LYMPHOCYTES # (AUTO) 3.2 K/uL (1.0-4.8); LYMPHOCYTES % (AUTO) 32.9 % (22.0-44.0); MEAN CORPUSCULAR HEMOGLOBIN 29.7 pg (26.0-34.0); MEAN CORPUSCULAR HGB CONC 32.7 G/dL (31.0-37.0); MEAN CORPUSCULAR VOLUME 91 fL (80-100); MONOCYTES # (AUTO) 0.9 K/uL (0.1-1.0); MONOCYTES % (AUTO) 9.7 % (2.0-9.0); NEUTROPHILS # (AUTO) 4.1 K/uL (1.8-7.7); NEUTROPHILS % (AUTO) 42.7 % (40.0-70.0); PLATELET COUNT (AUTO) 340 K/uL (150-450); RED BLOOD CELL COUNT(AUTO) 3.33 MIL/uL (4.50-5.90); RED CELL DISTRIBUTION WIDTH 16.7 % (11.5-14.5)
[2020-02-11 07:51] LABS: ALBUMIN 2.1 g/dL (3.4-5.0); BILIRUBIN,TOTAL 0.3 mg/dL (0.1-1.0); CALCIUM, TOTAL 8.5 mg/dL (8.8-10.5); CREATININE 1.93 mg/dL (0.60-1.30); POTASSIUM 4.1 mmol/L (3.5-5.1); TOTAL PROTEIN, SERUM 7.1 g/dL (6.4-8.2)
[2020-02-11] MEDS: OXYGEN THERAPY IH SCH ×2 (08:00→20:00)
[2020-02-11 08:30] VITALS: BP 138/91
[2020-02-11] MEDS: PANTOPRAZOLE SODIUM 40 MG DR TABLET PO SCH (08:47)
[2020-02-11] MEDS: MetroNIDAZOLE 500 MG TABLET PO SCH ×3 (08:47→21:39)
[2020-02-11] MEDS: NIFEdipine 30 MG ER TABLET PO SCH (08:47)
[2020-02-11] MEDS: FAMOTIDINE 20 MG TABLET PO SCH (08:47)
[2020-02-11] MEDS: MULTIVITAMINS, THERAPEUTIC TABLET PO SCH (08:47)
[2020-02-11] MEDS: DOCUSATE SODIUM 100 MG CAPSULE PO SCH ×2 (08:47→21:39)
[2020-02-11] MEDS: INSULIN GLARGINE,HUM.REC.ANLOG 100 UNITS/ML SQ SCH ×2 (08:50→21:43)
[2020-02-11 11:53] VITALS: BP 153/90
[2020-02-11 12:44] LABS: GLUCOMETER DEV NAME(LOC) 4E.2; GLUCOSE,POINT OF CARE 140 MG/DL (70-110)
[2020-02-11 15:44] VITALS: BP 139/81
[2020-02-11] MEDS: INSULIN LISPRO 100 UNITS/ML SQ PRN ×2 (17:58→21:43)
[2020-02-11 18:06] LABS: GLUCOMETER DEV NAME(LOC) 4E.2; GLUCOSE,POINT OF CARE 180 MG/DL (70-110)
[2020-02-11 20:02] VITALS: BP 142/81
[2020-02-11] MEDS: HYDROCODONE/ACETAMINOPHEN 5-325 MG TABLET PO PRN (21:39)
[2020-02-11 22:08] LABS: GLUCOMETER DEV NAME(LOC) 4E.2; GLUCOSE,POINT OF CARE 126 MG/DL (70-110)
[2020-02-12] VITALS: BP 140/81
[2020-02-12] MEDS: HEPARIN SODIUM,PORCINE 5,000 UNITS/ML VIAL SQ SCH ×3 (00:34→15:50)
[2020-02-12] MEDS: MEROPENEM 2 GM in SODIUM CHLORIDE 0.9% 100 ML IV SCH ×2 (04:36→16:28)
[2020-02-12] MEDS: INSULIN LISPRO 100 UNITS/ML SQ PRN ×3 (04:39→21:33)
[2020-02-12 04:45] VITALS: BP 138/81
[2020-02-12] MEDS: SODIUM CHLORIDE 0.9% 1,000 ML IV SCH ×3 (05:26→22:50)
[2020-02-12 06:02] LABS: GLUCOMETER DEV NAME(LOC) 4E.2; GLUCOSE,POINT OF CARE 113 MG/DL (70-110)
[2020-02-12 07:50] VITALS: BP 141/88
[2020-02-12] MEDS: OXYGEN THERAPY IH SCH ×2 (08:00→21:31)
[2020-02-12] MEDS: NIFEdipine 30 MG ER TABLET PO SCH (08:15)
[2020-02-12] MEDS: INSULIN GLARGINE,HUM.REC.ANLOG 100 UNITS/ML SQ SCH ×2 (08:15→21:31)
[2020-02-12] MEDS: MetroNIDAZOLE 500 MG TABLET PO SCH ×3 (08:15→21:24)
[2020-02-12] MEDS: MULTIVITAMINS, THERAPEUTIC TABLET PO SCH (08:16)
[2020-02-12] MEDS: DOCUSATE SODIUM 100 MG CAPSULE PO SCH ×2 (08:16→21:00)
[2020-02-12] MEDS: FAMOTIDINE 20 MG TABLET PO SCH (08:16)
[2020-02-12] MEDS: PANTOPRAZOLE SODIUM 40 MG DR TABLET PO SCH (08:16)
[2020-02-12 09:21] LABS: BASOPHILS % (AUTO) 1.3 % (0.0-2.0); EOSINOPHILS % (AUTO) 11.2 % (1.0-6.0); HEMATOCRIT 31.8 % (41-53); HEMOGLOBIN 10.4 g/dL (13.5-17.5); LYMPHOCYTES # (AUTO) 2.5 K/uL (1.0-4.8); LYMPHOCYTES % (AUTO) 32.2 % (22.0-44.0); MEAN CORPUSCULAR HEMOGLOBIN 29.7 pg (26.0-34.0); MEAN CORPUSCULAR HGB CONC 32.7 G/dL (31.0-37.0); MEAN CORPUSCULAR VOLUME 91 fL (80-100); MONOCYTES # (AUTO) 0.7 K/uL (0.1-1.0); MONOCYTES % (AUTO) 8.8 % (2.0-9.0); NEUTROPHILS # (AUTO) 3.6 K/uL (1.8-7.7); NEUTROPHILS % (AUTO) 46.5 % (40.0-70.0); PLATELET COUNT (AUTO) 356 K/uL (150-450); RED CELL DISTRIBUTION WIDTH 17.1 % (11.5-14.5)
[2020-02-12 10:00] LABS: ALBUMIN 2.1 g/dL (3.4-5.0); BILIRUBIN,TOTAL 0.3 mg/dL (0.1-1.0); CALCIUM, TOTAL 8.6 mg/dL (8.8-10.5); CREATININE 1.8 mg/dL (0.60-1.30); POTASSIUM 4.4 mmol/L (3.5-5.1); TOTAL PROTEIN, SERUM 7.3 g/dL (6.4-8.2)
[2020-02-12 11:24] VITALS: BP 143/94
[2020-02-12 12:21] LABS: GLUCOMETER DEV NAME(LOC) 4E.2; GLUCOSE,POINT OF CARE 137 MG/DL (70-110)
[2020-02-12 16:00] VITALS: BP 140/89
[2020-02-12] MEDS: HYDROCODONE/ACETAMINOPHEN 5-325 MG TABLET PO PRN ×2 (16:30→21:37)
[2020-02-12 18:12] LABS: GLUCOMETER DEV NAME(LOC) 4E.2; GLUCOSE,POINT OF CARE 160 MG/DL (70-110)
[2020-02-12 21:37] VITALS: BP 146/75
[2020-02-12 21:55] LABS: GLUCOMETER DEV NAME(LOC) 6N.1; GLUCOSE,POINT OF CARE 159 MG/DL (70-110)
[2020-02-13] MEDS: HEPARIN SODIUM,PORCINE 5,000 UNITS/ML VIAL SQ SCH ×3 (01:44→16:25)
[2020-02-13 01:51] VITALS: BP 116/73
[2020-02-13] MEDS: MEROPENEM 2 GM in SODIUM CHLORIDE 0.9% 100 ML IV SCH ×2 (04:30→16:24)
[2020-02-13 04:35] VITALS: BP 129/74
[2020-02-13 06:18] LABS: GLUCOMETER DEV NAME(LOC) 6N.1; GLUCOSE,POINT OF CARE 96 MG/DL (70-110)
[2020-02-13] MEDS: OXYGEN THERAPY IH SCH ×2 (08:00→21:16)
[2020-02-13 08:01] VITALS: BP 144/90
[2020-02-13] MEDS: INSULIN GLARGINE,HUM.REC.ANLOG 100 UNITS/ML SQ SCH ×2 (08:14→21:20)
[2020-02-13] MEDS: PANTOPRAZOLE SODIUM 40 MG DR TABLET PO SCH (08:15)
[2020-02-13] MEDS: NIFEdipine 30 MG ER TABLET PO SCH (08:15)
[2020-02-13] MEDS: MULTIVITAMINS, THERAPEUTIC TABLET PO SCH (08:15)
[2020-02-13] MEDS: MetroNIDAZOLE 500 MG TABLET PO SCH ×2 (08:15→16:27)
[2020-02-13] MEDS: FAMOTIDINE 20 MG TABLET PO SCH (08:16)
[2020-02-13] MEDS: DOCUSATE SODIUM 100 MG CAPSULE PO SCH ×2 (08:16→21:00)
[2020-02-13 11:48] VITALS: BP 149/88
[2020-02-13] MEDS: INSULIN LISPRO 100 UNITS/ML SQ PRN ×2 (11:51→21:20)
[2020-02-13 12:11] LABS: BASOPHILS % (AUTO) 1.4 % (0.0-2.0); EOSINOPHILS % (AUTO) 7.4 % (1.0-6.0); HEMATOCRIT 32.5 % (41-53); HEMOGLOBIN 10.6 g/dL (13.5-17.5); LYMPHOCYTES # (AUTO) 2.6 K/uL (1.0-4.8); LYMPHOCYTES % (AUTO) 34.8 % (22.0-44.0); MEAN CORPUSCULAR HEMOGLOBIN 29.5 pg (26.0-34.0); MEAN CORPUSCULAR HGB CONC 32.6 G/dL (31.0-37.0); MEAN CORPUSCULAR VOLUME 90 fL (80-100); MONOCYTES # (AUTO) 0.8 K/uL (0.1-1.0); MONOCYTES % (AUTO) 10.4 % (2.0-9.0); NEUTROPHILS # (AUTO) 3.4 K/uL (1.8-7.7); PLATELET COUNT (AUTO) 336 K/uL (150-450); RED BLOOD CELL COUNT(AUTO) 3.59 MIL/uL (4.50-5.90); RED CELL DISTRIBUTION WIDTH 17.1 % (11.5-14.5)
[2020-02-13 13:43] LABS: GLUCOMETER DEV NAME(LOC) 4E.2; GLUCOSE,POINT OF CARE 149 MG/DL (70-110)
[2020-02-13 14:18] LABS: CALCIUM, TOTAL 8.5 mg/dL (8.8-10.5); CREATININE 1.75 mg/dL (0.60-1.30); POTASSIUM 4.6 mmol/L (3.5-5.1)
[2020-02-13 16:16] VITALS: BP 131/84
[2020-02-13] MEDS: SODIUM CHLORIDE 0.9% 1,000 ML IV SCH (16:24)
[2020-02-13] MEDS: HYDROCODONE/ACETAMINOPHEN 5-325 MG TABLET PO PRN (16:27)
[2020-02-13 18:09] LABS: GLUCOMETER DEV NAME(LOC) 4E.2; GLUCOSE,POINT OF CARE 125 MG/DL (70-110)
[2020-02-13 19:32] VITALS: BP 149/83
[2020-02-13 23:23] LABS: GLUCOMETER DEV NAME(LOC) 4E.2; GLUCOSE,POINT OF CARE 156 MG/DL (70-110)
[2020-02-14 00:02] VITALS: BP 116/75
[2020-02-14] MEDS: MEROPENEM 2 GM in SODIUM CHLORIDE 0.9% 100 ML IV SCH ×2 (03:47→15:55)
[2020-02-14 04:25] VITALS: BP 148/89
[2020-02-14 06:38] LABS: GLUCOMETER DEV NAME(LOC) 6N.1; GLUCOSE,POINT OF CARE 99 MG/DL (70-110)
[2020-02-14 07:35] LABS: BASOPHILS % (AUTO) 1.9 % (0.0-2.0); EOSINOPHILS % (AUTO) 9.9 % (1.0-6.0); HEMATOCRIT 32.9 % (41-53); HEMOGLOBIN 10.9 g/dL (13.5-17.5); LYMPHOCYTES # (AUTO) 2.6 K/uL (1.0-4.8); LYMPHOCYTES % (AUTO) 34.9 % (22.0-44.0); MEAN CORPUSCULAR HGB CONC 33.1 G/dL (31.0-37.0); MEAN CORPUSCULAR VOLUME 91 fL (80-100); MONOCYTES # (AUTO) 0.8 K/uL (0.1-1.0); MONOCYTES % (AUTO) 10.9 % (2.0-9.0); NEUTROPHILS # (AUTO) 3.1 K/uL (1.8-7.7); NEUTROPHILS % (AUTO) 42.4 % (40.0-70.0); PLATELET COUNT (AUTO) 324 K/uL (150-450); RED BLOOD CELL COUNT(AUTO) 3.63 MIL/uL (4.50-5.90); RED CELL DISTRIBUTION WIDTH 17.3 % (11.5-14.5)
[2020-02-14 07:54] VITALS: BP 140/82
[2020-02-14] MEDS: OXYGEN THERAPY IH SCH ×2 (08:00→20:00)
[2020-02-14] MEDS: HEPARIN SODIUM,PORCINE 5,000 UNITS/ML VIAL SQ SCH ×4 (08:04→23:45)
[2020-02-14] MEDS: DOCUSATE SODIUM 100 MG CAPSULE PO SCH ×3 (08:04→20:30)
[2020-02-14] MEDS: PANTOPRAZOLE SODIUM 40 MG DR TABLET PO SCH (08:04)
[2020-02-14] MEDS: FAMOTIDINE 20 MG TABLET PO SCH (08:04)
[2020-02-14] MEDS: MULTIVITAMINS, THERAPEUTIC TABLET PO SCH (08:04)
[2020-02-14] MEDS: NIFEdipine 30 MG ER TABLET PO SCH (08:05)
[2020-02-14] MEDS: INSULIN GLARGINE,HUM.REC.ANLOG 100 UNITS/ML SQ SCH ×2 (08:10→20:21)
[2020-02-14 08:14] LABS: CALCIUM, TOTAL 8.9 mg/dL (8.8-10.5); CREATININE 1.81 mg/dL (0.60-1.30); POTASSIUM 4.4 mmol/L (3.5-5.1)
[2020-02-14] MEDS: SODIUM CHLORIDE 0.9% 1,000 ML IV SCH ×2 (10:39→22:52)
[2020-02-14 12:34] LABS: GLUCOMETER DEV NAME(LOC) 4E.2; GLUCOSE,POINT OF CARE 127 MG/DL (70-110)
[2020-02-14 16:00] VITALS: BP 119/72
[2020-02-14 18:01] LABS: GLUCOMETER DEV NAME(LOC) 4E.2; GLUCOSE,POINT OF CARE 132 MG/DL (70-110)
[2020-02-14 19:38] VITALS: BP 120/86
[2020-02-14 20:18] LABS: GLUCOMETER DEV NAME(LOC) 6N.1; GLUCOSE,POINT OF CARE 173 MG/DL (70-110)
[2020-02-14] MEDS: INSULIN LISPRO 100 UNITS/ML SQ PRN (20:22)
[2020-02-14 22:49] VITALS: BP 136/86
[2020-02-15] MEDS: MEROPENEM 2 GM in SODIUM CHLORIDE 0.9% 100 ML IV SCH ×2 (03:10→16:49)
[2020-02-15 04:36] VITALS: BP 145/90
[2020-02-15 06:29] LABS: GLUCOMETER DEV NAME(LOC) 6N.1; GLUCOSE,POINT OF CARE 110 MG/DL (70-110)
[2020-02-15 06:44] LABS: BASOPHILS % (AUTO) 1.1 % (0.0-2.0); EOSINOPHILS % (AUTO) 10.8 % (1.0-6.0); HEMATOCRIT 32.2 % (41-53); HEMOGLOBIN 10.7 g/dL (13.5-17.5); LYMPHOCYTES # (AUTO) 2.5 K/uL (1.0-4.8); LYMPHOCYTES % (AUTO) 31.4 % (22.0-44.0); MEAN CORPUSCULAR HEMOGLOBIN 30.1 pg (26.0-34.0); MEAN CORPUSCULAR HGB CONC 33.1 G/dL (31.0-37.0); MEAN CORPUSCULAR VOLUME 91 fL (80-100); MONOCYTES # (AUTO) 0.8 K/uL (0.1-1.0); MONOCYTES % (AUTO) 10.1 % (2.0-9.0); NEUTROPHILS # (AUTO) 3.7 K/uL (1.8-7.7); NEUTROPHILS % (AUTO) 46.6 % (40.0-70.0); PLATELET COUNT (AUTO) 322 K/uL (150-450); RED BLOOD CELL COUNT(AUTO) 3.55 MIL/uL (4.50-5.90)
[2020-02-15 08:04] LABS: CALCIUM, TOTAL 8.7 mg/dL (8.8-10.5); CREATININE 1.97 mg/dL (0.60-1.30); POTASSIUM 4.7 mmol/L (3.5-5.1)
[2020-02-15] MEDS: MULTIVITAMINS, THERAPEUTIC TABLET PO SCH (08:34)
[2020-02-15] MEDS: HEPARIN SODIUM,PORCINE 5,000 UNITS/ML VIAL SQ SCH ×3 (08:34→23:09)
[2020-02-15] MEDS: PANTOPRAZOLE SODIUM 40 MG DR TABLET PO SCH (08:34)
[2020-02-15] MEDS: NIFEdipine 30 MG ER TABLET PO SCH (08:34)
[2020-02-15] MEDS: FAMOTIDINE 20 MG TABLET PO SCH (08:34)
[2020-02-15] MEDS: DOCUSATE SODIUM 100 MG CAPSULE PO SCH ×2 (08:34→21:00)
[2020-02-15] MEDS: INSULIN GLARGINE,HUM.REC.ANLOG 100 UNITS/ML SQ SCH ×2 (08:40→22:08)
[2020-02-15 08:48] VITALS: BP 142/89
[2020-02-15] MEDS: SODIUM CHLORIDE 0.9% 1,000 ML IV SCH (11:45)
[2020-02-15] MEDS: INSULIN LISPRO 100 UNITS/ML SQ PRN ×2 (12:40→22:09)
[2020-02-15 14:13] LABS: GLUCOMETER DEV NAME(LOC) 4E.2; GLUCOSE,POINT OF CARE 149 MG/DL (70-110)
[2020-02-15 15:55] VITALS: BP 140/82
[2020-02-15] MEDS: OXYGEN THERAPY IH SCH (20:00)
[2020-02-15 20:24] VITALS: BP 136/77
[2020-02-16 02:20] LABS: GLUCOMETER DEV NAME(LOC) 6N.1; GLUCOSE,POINT OF CARE 140 MG/DL (70-110)
[2020-02-16 02:21] LABS: GLUCOMETER DEV NAME(LOC) 6N.1; GLUCOSE,POINT OF CARE 153 MG/DL (70-110)
[2020-02-16] MEDS: MEROPENEM 2 GM in SODIUM CHLORIDE 0.9% 100 ML IV SCH ×2 (04:23→16:11)
[2020-02-16] MEDS: SODIUM CHLORIDE 0.9% 1,000 ML IV SCH (04:32)
[2020-02-16 04:33] VITALS: BP 131/86
[2020-02-16 06:13] LABS: GLUCOMETER DEV NAME(LOC) 4E.2; GLUCOSE,POINT OF CARE 117 MG/DL (70-110)
[2020-02-16] MEDS ORDERED: MINERAL OIL 10 ML VIAL TP ONE ×2 (06:20→06:53)
[2020-02-16] MEDS ORDERED: BUPIVACAINE 0.25%/EPI 1:200,000/PF 10 ML VIAL ONE ×3 (06:28→06:42)
[2020-02-16] MEDS ORDERED: SODIUM CHLORIDE 0.9% 1,000 ML ONE (06:33)
[2020-02-16 06:44] LABS: BASOPHILS % (AUTO) 1.2 % (0.0-2.0); EOSINOPHILS % (AUTO) 8.6 % (1.0-6.0); HEMATOCRIT 32.4 % (41-53); HEMOGLOBIN 10.8 g/dL (13.5-17.5); LYMPHOCYTES # (AUTO) 2.7 K/uL (1.0-4.8); LYMPHOCYTES % (AUTO) 32.7 % (22.0-44.0); MEAN CORPUSCULAR HEMOGLOBIN 30.4 pg (26.0-34.0); MEAN CORPUSCULAR HGB CONC 33.3 G/dL (31.0-37.0); MEAN CORPUSCULAR VOLUME 91 fL (80-100); MONOCYTES # (AUTO) 0.9 K/uL (0.1-1.0); MONOCYTES % (AUTO) 10.6 % (2.0-9.0); NEUTROPHILS # (AUTO) 3.9 K/uL (1.8-7.7); NEUTROPHILS % (AUTO) 46.9 % (40.0-70.0); PLATELET COUNT (AUTO) 328 K/uL (150-450); RED BLOOD CELL COUNT(AUTO) 3.56 MIL/uL (4.50-5.90); RED CELL DISTRIBUTION WIDTH 17.3 % (11.5-14.5)
[2020-02-16 07:16] LABS: ALBUMIN 2.2 g/dL (3.4-5.0); BILIRUBIN,TOTAL 0.3 mg/dL (0.1-1.0); CALCIUM, TOTAL 8.3 mg/dL (8.8-10.5); CREATININE 1.85 mg/dL (0.60-1.30); POTASSIUM 4.3 mmol/L (3.5-5.1)
[2020-02-16] MEDS ORDERED: LIDOCAINE 1%/EPI 1:200,000/PF 30 ML VIAL ONE (07:46)
[2020-02-16] MEDS: HEPARIN SODIUM,PORCINE 5,000 UNITS/ML VIAL SQ SCH ×2 (07:56→16:11)
[2020-02-16] MEDS: OXYGEN THERAPY IH SCH (08:00)
[2020-02-16] MEDS: INSULIN GLARGINE,HUM.REC.ANLOG 100 UNITS/ML SQ SCH ×2 (09:00→21:19)
[2020-02-16] MEDS: PANTOPRAZOLE SODIUM 40 MG DR TABLET PO SCH (10:54)
[2020-02-16] MEDS: FAMOTIDINE 20 MG TABLET PO SCH (10:54)
[2020-02-16] MEDS: DOCUSATE SODIUM 100 MG CAPSULE PO SCH ×2 (10:54→21:16)
[2020-02-16] MEDS: MULTIVITAMINS, THERAPEUTIC TABLET PO SCH (10:54)
[2020-02-16] MEDS: NIFEdipine 30 MG ER TABLET PO SCH (10:55)
[2020-02-16 11:28] VITALS: BP 145/89
[2020-02-16 14:03] LABS: GLUCOMETER DEV NAME(LOC) 6N.1; GLUCOSE,POINT OF CARE 122 MG/DL (70-110)
[2020-02-16 16:05] VITALS: BP 143/89
[2020-02-16 17:51] LABS: GLUCOMETER DEV NAME(LOC) 4E.2; GLUCOSE,POINT OF CARE 134 MG/DL (70-110)
[2020-02-16 19:12] LABS: COVID AG,FIA SOURCE NASOPHARYNGEAL
[2020-02-16 20:16] VITALS: BP 146/86
[2020-02-16 22:01] LABS: GLUCOMETER DEV NAME(LOC) 6N.1; GLUCOSE,POINT OF CARE 138 MG/DL (70-110)
[2020-02-16 23:50] VITALS: BP 136/80
[2020-02-17] MEDS: HEPARIN SODIUM,PORCINE 5,000 UNITS/ML VIAL SQ SCH ×3 (00:11→16:39)
[2020-02-17 04:02] VITALS: BP 127/77
[2020-02-17] MEDS: MEROPENEM 2 GM in SODIUM CHLORIDE 0.9% 100 ML IV SCH ×2 (04:28→16:39)
[2020-02-17] MEDS ORDERED: FentaNYL CITRATE PF 100 MCG/2 ML VIAL IVP ONE (05:05)
[2020-02-17] MEDS ORDERED: MIDAZOLAM HCL 2 MG/2 ML VIAL IVP ONE (05:05)
[2020-02-17 08:14] VITALS: BP 134/72
[2020-02-17] MEDS: PANTOPRAZOLE SODIUM 40 MG DR TABLET PO SCH (08:41)
[2020-02-17] MEDS: FAMOTIDINE 20 MG TABLET PO SCH (08:41)
[2020-02-17] MEDS: NIFEdipine 30 MG ER TABLET PO SCH (08:42)
[2020-02-17] MEDS: MULTIVITAMINS, THERAPEUTIC TABLET PO SCH (08:42)
[2020-02-17] MEDS: DOCUSATE SODIUM 100 MG CAPSULE PO SCH ×3 (08:42→09:00)
[2020-02-17] MEDS: INSULIN GLARGINE,HUM.REC.ANLOG 100 UNITS/ML SQ SCH ×2 (08:46→21:40)
[2020-02-17 12:14] LABS: GLUCOMETER DEV NAME(LOC) 4E.2; GLUCOSE,POINT OF CARE 114 MG/DL (70-110)
[2020-02-17 13:30] LABS: GLUCOMETER DEV NAME(LOC) 6N.1; GLUCOSE,POINT OF CARE 111 MG/DL (70-110)
[2020-02-17] MEDS: SODIUM CHLORIDE 0.9% 1,000 ML IV SCH (15:33)
[2020-02-17 15:37] VITALS: BP 147/75
[2020-02-17 17:19] LABS: GLUCOMETER DEV NAME(LOC) 6N.1; GLUCOSE,POINT OF CARE 112 MG/DL (70-110)
[2020-02-17 19:42] VITALS: BP 129/80
[2020-02-17] MEDS: OXYGEN THERAPY IH SCH (20:00)
[2020-02-17 23:16] VITALS: BP 138/82
[2020-02-18 00:20] LABS: GLUCOMETER DEV NAME(LOC) 6N.2; GLUCOSE,POINT OF CARE 159 MG/DL (70-110)
[2020-02-18] MEDS: HEPARIN SODIUM,PORCINE 5,000 UNITS/ML VIAL SQ SCH ×3 (00:51→17:07)
[2020-02-18 04:50] VITALS: BP 144/87
[2020-02-18] MEDS ORDERED: EPHEDrine SULFATE 50 MG/ML VIAL IM ONE (06:52)
[2020-02-18] MEDS ORDERED: LIDOCAINE/PF 2% 5 ML VIAL IM ONE (06:52)
[2020-02-18] MEDS ORDERED: 0.9% SODIUM CHLORIDE 10 ML VIAL IVP ONE (06:52)
[2020-02-18] MEDS ORDERED: SUCCINYLCHOLINE CHLORIDE 20 MG/ML 10 ML VIAL IVP ONE (06:52)
[2020-02-18] MEDS ORDERED: PROPOFOL 1% 20 ML VIAL IVP ONE (06:52)
[2020-02-18] MEDS ORDERED: ONDANSETRON HCL 4 MG/2 ML VIAL IVP ONE (06:52)
[2020-02-18] MEDS: OXYGEN THERAPY IH SCH ×2 (08:00→20:00)
[2020-02-18] MEDS: DOCUSATE SODIUM 100 MG CAPSULE PO SCH ×3 (08:42→22:15)
[2020-02-18] MEDS: NIFEdipine 30 MG ER TABLET PO SCH (08:43)
[2020-02-18] MEDS: MULTIVITAMINS, THERAPEUTIC TABLET PO SCH (08:43)
[2020-02-18] MEDS: FAMOTIDINE 20 MG TABLET PO SCH (08:43)
[2020-02-18] MEDS: PANTOPRAZOLE SODIUM 40 MG DR TABLET PO SCH (08:43)
[2020-02-18] MEDS: INSULIN GLARGINE,HUM.REC.ANLOG 100 UNITS/ML SQ SCH ×2 (08:47→22:32)
[2020-02-18 09:22] VITALS: BP_SYST 146; BP_SYST 91; BP_DIAS 146; BP_DIAS 81
[2020-02-18] MEDS: INSULIN LISPRO 100 UNITS/ML SQ PRN ×2 (12:02→17:14)
[2020-02-18 12:08] LABS: GLUCOMETER DEV NAME(LOC) 6N.2; GLUCOSE,POINT OF CARE 141 MG/DL (70-110)
[2020-02-18 12:23] LABS: GLUCOMETER DEV NAME(LOC) 6S.1; GLUCOSE,POINT OF CARE 133 MG/DL (70-110)
[2020-02-18 16:07] VITALS: BP 139/82
[2020-02-18 19:38] VITALS: BP 131/82
[2020-02-18] MEDS: SODIUM CHLORIDE 0.9% 1,000 ML IV SCH (22:16)
[2020-02-18 23:29] LABS: GLUCOMETER DEV NAME(LOC) 6N.2; GLUCOSE,POINT OF CARE 171 MG/DL (70-110)
[2020-02-19 00:08] LABS: GLUCOMETER DEV NAME(LOC) 6S.1; GLUCOSE,POINT OF CARE 199 MG/DL (70-110)
[2020-02-19] MEDS: HEPARIN SODIUM,PORCINE 5,000 UNITS/ML VIAL SQ SCH ×3 (00:15→15:59)
[2020-02-19 00:45] VITALS: BP 128/81
[2020-02-19 04:52] VITALS: BP 118/70
[2020-02-19 07:11] LABS: GLUCOMETER DEV NAME(LOC) 6N.2; GLUCOSE,POINT OF CARE 121 MG/DL (70-110)
[2020-02-19] MEDS: OXYGEN THERAPY IH SCH (08:00)
[2020-02-19 08:04] VITALS: BP 146/90
[2020-02-19] MEDS: MULTIVITAMINS, THERAPEUTIC TABLET PO SCH (08:48)
[2020-02-19] MEDS: FAMOTIDINE 20 MG TABLET PO SCH (08:48)
[2020-02-19] MEDS: PANTOPRAZOLE SODIUM 40 MG DR TABLET PO SCH (08:48)
[2020-02-19] MEDS: NIFEdipine 30 MG ER TABLET PO SCH (08:49)
[2020-02-19] MEDS: DOCUSATE SODIUM 100 MG CAPSULE PO SCH ×2 (08:49→21:00)
[2020-02-19] MEDS: INSULIN GLARGINE,HUM.REC.ANLOG 100 UNITS/ML SQ SCH ×2 (09:00→21:03)
[2020-02-19] MEDS: INSULIN LISPRO 100 UNITS/ML SQ PRN ×2 (11:55→21:03)
[2020-02-19] MEDS: SODIUM CHLORIDE 0.9% 1,000 ML IV SCH ×2 (13:42→13:43)
[2020-02-19 14:35] LABS: GLUCOMETER DEV NAME(LOC) 6N.2; GLUCOSE,POINT OF CARE 168 MG/DL (70-110)
[2020-02-19 15:48] VITALS: BP 142/83
[2020-02-19 20:23] VITALS: BP 147/85
[2020-02-20] MEDS: HEPARIN SODIUM,PORCINE 5,000 UNITS/ML VIAL SQ SCH ×3 (00:14→16:14)
[2020-02-20 01:50] LABS: GLUCOMETER DEV NAME(LOC) 6S.1; GLUCOSE,POINT OF CARE 134 MG/DL (70-110)
[2020-02-20 01:51] LABS: GLUCOMETER DEV NAME(LOC) 6S.1; GLUCOSE,POINT OF CARE 192 MG/DL (70-110)
[2020-02-20] MEDS: SODIUM CHLORIDE 0.9% 1,000 ML IV SCH ×2 (04:02→12:24)
[2020-02-20 04:53] VITALS: BP 146/90
[2020-02-20 06:35] LABS: BASOPHILS % (AUTO) 1.3 % (0.0-2.0); EOSINOPHILS % (AUTO) 8.4 % (1.0-6.0); HEMOGLOBIN 10.8 g/dL (13.5-17.5); LYMPHOCYTES # (AUTO) 2.7 K/uL (1.0-4.8); LYMPHOCYTES % (AUTO) 35.2 % (22.0-44.0); MEAN CORPUSCULAR HEMOGLOBIN 29.8 pg (26.0-34.0); MEAN CORPUSCULAR HGB CONC 32.6 G/dL (31.0-37.0); MEAN CORPUSCULAR VOLUME 92 fL (80-100); MONOCYTES # (AUTO) 0.7 K/uL (0.1-1.0); MONOCYTES % (AUTO) 9.2 % (2.0-9.0); NEUTROPHILS # (AUTO) 3.6 K/uL (1.8-7.7); NEUTROPHILS % (AUTO) 45.9 % (40.0-70.0); PLATELET COUNT (AUTO) 333 K/uL (150-450); RED CELL DISTRIBUTION WIDTH 16.8 % (11.5-14.5)
[2020-02-20 06:53] LABS: CALCIUM, TOTAL 8.5 mg/dL (8.8-10.5); CREATININE 1.82 mg/dL (0.60-1.30); POTASSIUM 4.2 mmol/L (3.5-5.1)
[2020-02-20 07:49] LABS: GLUCOMETER DEV NAME(LOC) 6N.2; GLUCOSE,POINT OF CARE 106 MG/DL (70-110)
[2020-02-20] MEDS: OXYGEN THERAPY IH SCH (08:00)
[2020-02-20 08:15] VITALS: BP 144/86
[2020-02-20] MEDS: DOCUSATE SODIUM 100 MG CAPSULE PO SCH ×3 (09:00→21:00)
[2020-02-20] MEDS: MULTIVITAMINS, THERAPEUTIC TABLET PO SCH (09:27)
[2020-02-20] MEDS: FAMOTIDINE 20 MG TABLET PO SCH (09:27)
[2020-02-20] MEDS: PANTOPRAZOLE SODIUM 40 MG DR TABLET PO SCH (09:28)
[2020-02-20] MEDS: NIFEdipine 30 MG ER TABLET PO SCH (09:31)
[2020-02-20] MEDS: INSULIN GLARGINE,HUM.REC.ANLOG 100 UNITS/ML SQ SCH ×2 (09:37→20:17)
[2020-02-20 13:12] LABS: GLUCOMETER DEV NAME(LOC) 6S.1; GLUCOSE,POINT OF CARE 140 MG/DL (70-110)
[2020-02-20 18:06] LABS: GLUCOMETER DEV NAME(LOC) 6S.1; GLUCOSE,POINT OF CARE 125 MG/DL (70-110)
[2020-02-20 20:00] VITALS: BP 140/83
[2020-02-20] MEDS: INSULIN LISPRO 100 UNITS/ML SQ PRN (20:18)
[2020-02-20 22:30] LABS: GLUCOMETER DEV NAME(LOC) 6S.1; GLUCOSE,POINT OF CARE 154 MG/DL (70-110)
[2020-02-20 23:41] VITALS: BP 144/86
[2020-02-21] MEDS: HEPARIN SODIUM,PORCINE 5,000 UNITS/ML VIAL SQ SCH ×4 (00:39→23:26)
[2020-02-21] MEDS: SODIUM CHLORIDE 0.9% 1,000 ML IV SCH ×2 (00:45→15:42)
[2020-02-21 04:55] VITALS: BP 134/78
[2020-02-21 05:42] LABS: GLUCOMETER DEV NAME(LOC) 4E.2; GLUCOSE,POINT OF CARE 146 MG/DL (70-110)
[2020-02-21] MEDS: INSULIN LISPRO 100 UNITS/ML SQ PRN ×4 (05:55→20:56)
[2020-02-21 06:59] LABS: BASOPHILS % (AUTO) 1.1 % (0.0-2.0); EOSINOPHILS % (AUTO) 6.7 % (1.0-6.0); HEMATOCRIT 32.9 % (41-53); HEMOGLOBIN 10.6 g/dL (13.5-17.5); LYMPHOCYTES # (AUTO) 2.7 K/uL (1.0-4.8); MEAN CORPUSCULAR HEMOGLOBIN 29.8 pg (26.0-34.0); MEAN CORPUSCULAR HGB CONC 32.4 G/dL (31.0-37.0); MEAN CORPUSCULAR VOLUME 92 fL (80-100); MONOCYTES # (AUTO) 0.6 K/uL (0.1-1.0); MONOCYTES % (AUTO) 8.3 % (2.0-9.0); NEUTROPHILS # (AUTO) 3.8 K/uL (1.8-7.7); NEUTROPHILS % (AUTO) 48.9 % (40.0-70.0); PLATELET COUNT (AUTO) 352 K/uL (150-450); RED BLOOD CELL COUNT(AUTO) 3.58 MIL/uL (4.50-5.90); RED CELL DISTRIBUTION WIDTH 17.1 % (11.5-14.5)
[2020-02-21 07:02] LABS: CALCIUM, TOTAL 8.5 mg/dL (8.8-10.5); CREATININE 1.84 mg/dL (0.60-1.30); POTASSIUM 4.2 mmol/L (3.5-5.1)
[2020-02-21] MEDS: OXYGEN THERAPY IH SCH (08:00)
[2020-02-21 08:10] VITALS: BP 139/76
[2020-02-21] MEDS: DOCUSATE SODIUM 100 MG CAPSULE PO SCH ×3 (08:47→21:00)
[2020-02-21] MEDS: NIFEdipine 30 MG ER TABLET PO SCH (08:47)
[2020-02-21] MEDS: FAMOTIDINE 20 MG TABLET PO SCH (08:47)
[2020-02-21] MEDS: MULTIVITAMINS, THERAPEUTIC TABLET PO SCH (08:47)
[2020-02-21] MEDS: PANTOPRAZOLE SODIUM 40 MG DR TABLET PO SCH (08:47)
[2020-02-21] MEDS: INSULIN GLARGINE,HUM.REC.ANLOG 100 UNITS/ML SQ SCH ×2 (09:18→20:55)
[2020-02-21 16:10] VITALS: BP 132/74
[2020-02-21 17:03] LABS: GLUCOMETER DEV NAME(LOC) 6S.1; GLUCOSE,POINT OF CARE 151 MG/DL (70-110)
[2020-02-21 19:30] LABS: GLUCOMETER DEV NAME(LOC) 6N.2; GLUCOSE,POINT OF CARE 144 MG/DL (70-110)
[2020-02-21 20:25] VITALS: BP 139/85
[2020-02-21 20:53] LABS: GLUCOMETER DEV NAME(LOC) 6S.1; GLUCOSE,POINT OF CARE 141 MG/DL (70-110)
[2020-02-21 23:30] VITALS: BP 140/83
[2020-02-22 05:15] VITALS: BP 148/87
[2020-02-22 06:12] LABS: GLUCOMETER DEV NAME(LOC) 4E.2; GLUCOSE,POINT OF CARE 128 MG/DL (70-110)
[2020-02-22] MEDS: OXYGEN THERAPY IH SCH (08:00)
[2020-02-22 08:18] VITALS: BP 139/87
[2020-02-22 08:19] LABS: BASOPHILS % (AUTO) 0.9 % (0.0-2.0); EOSINOPHILS % (AUTO) 6.4 % (1.0-6.0); HEMATOCRIT 35.4 % (41-53); HEMOGLOBIN 11.6 g/dL (13.5-17.5); LYMPHOCYTES # (AUTO) 2.5 K/uL (1.0-4.8); LYMPHOCYTES % (AUTO) 32.1 % (22.0-44.0); MEAN CORPUSCULAR HGB CONC 32.8 G/dL (31.0-37.0); MEAN CORPUSCULAR VOLUME 92 fL (80-100); MONOCYTES # (AUTO) 0.5 K/uL (0.1-1.0); MONOCYTES % (AUTO) 6.6 % (2.0-9.0); NEUTROPHILS # (AUTO) 4.3 K/uL (1.8-7.7); PLATELET COUNT (AUTO) 403 K/uL (150-450); RED BLOOD CELL COUNT(AUTO) 3.87 MIL/uL (4.50-5.90); RED CELL DISTRIBUTION WIDTH 17.3 % (11.5-14.5)
[2020-02-22 08:33] LABS: CALCIUM, TOTAL 9.2 mg/dL (8.8-10.5); CREATININE 1.91 mg/dL (0.60-1.30); POTASSIUM 4.4 mmol/L (3.5-5.1)
[2020-02-22] MEDS: MULTIVITAMINS, THERAPEUTIC TABLET PO SCH (08:52)
[2020-02-22] MEDS: NIFEdipine 30 MG ER TABLET PO SCH (08:52)
[2020-02-22] MEDS: FAMOTIDINE 20 MG TABLET PO SCH (08:52)
[2020-02-22] MEDS: DOCUSATE SODIUM 100 MG CAPSULE PO SCH ×2 (08:52→21:00)
[2020-02-22] MEDS: PANTOPRAZOLE SODIUM 40 MG DR TABLET PO SCH (08:52)
[2020-02-22] MEDS: HEPARIN SODIUM,PORCINE 5,000 UNITS/ML VIAL SQ SCH ×3 (08:52→23:39)
[2020-02-22] MEDS: INSULIN GLARGINE,HUM.REC.ANLOG 100 UNITS/ML SQ SCH ×2 (09:06→20:12)
[2020-02-22] MEDS: INSULIN LISPRO 100 UNITS/ML SQ PRN ×2 (12:11→20:12)
[2020-02-22 15:42] VITALS: BP 137/89
[2020-02-22 17:12] LABS: GLUCOMETER DEV NAME(LOC) 6S.1; GLUCOSE,POINT OF CARE 174 MG/DL (70-110)
[2020-02-22 18:13] LABS: GLUCOMETER DEV NAME(LOC) 6N.2; GLUCOSE,POINT OF CARE 140 MG/DL (70-110)
[2020-02-22 20:20] VITALS: BP 146/84
[2020-02-22 20:49] LABS: GLUCOMETER DEV NAME(LOC) 4E.2; GLUCOSE,POINT OF CARE 162 MG/DL (70-110)
[2020-02-23 00:09] VITALS: BP 130/78
[2020-02-23 04:58] VITALS: BP 147/87
[2020-02-23 06:49] LABS: GLUCOMETER DEV NAME(LOC) 4E.2; GLUCOSE,POINT OF CARE 129 MG/DL (70-110)
[2020-02-23] MEDS: OXYGEN THERAPY IH SCH (08:00)
[2020-02-23] MEDS: FAMOTIDINE 20 MG TABLET PO SCH (08:37)
[2020-02-23] MEDS: MULTIVITAMINS, THERAPEUTIC TABLET PO SCH (08:37)
[2020-02-23] MEDS: DOCUSATE SODIUM 100 MG CAPSULE PO SCH ×2 (08:37→09:00)
[2020-02-23] MEDS: PANTOPRAZOLE SODIUM 40 MG DR TABLET PO SCH (08:37)
[2020-02-23] MEDS: NIFEdipine 30 MG ER TABLET PO SCH (08:37)
[2020-02-23] MEDS: HEPARIN SODIUM,PORCINE 5,000 UNITS/ML VIAL SQ SCH (08:37)
[2020-02-23] MEDS: INSULIN GLARGINE,HUM.REC.ANLOG 100 UNITS/ML SQ SCH (08:44)
[2020-02-23 09:31] VITALS: BP 133/81
[2020-02-23 11:40] LABS: GLUCOMETER DEV NAME(LOC) 4E.2; GLUCOSE,POINT OF CARE 168 MG/DL (70-110)
[2020-02-23] MEDS: INSULIN LISPRO 100 UNITS/ML SQ PRN (12:21)
[2020-02-23] MEDS ORDERED: APIX5TAB PO (13:49)
== END 2020-02-23 15:00 | disposition home or self-care (01) | DRG 710 ==
LOC: EMS 12:38 → 5S 19:02 → 4E 02-02 18:15 → 6N 02-17 19:05
PROVIDERS: ADMIT Internal Medicine; ATTEND Internal Medicine
PROC: 0QBP0ZZ Excision of Left Metatarsal, Open Approach (ICD-10-PCS; 2020-01-18)
PROC: 0LBW0ZZ Excision of Left Foot Tendon, Open Approach (ICD-10-PCS; principal; 2020-01-18 21:00)
PROC: 0QBP0ZZ Excision of Left Metatarsal, Open Approach (ICD-10-PCS; 2020-02-08)
PROC: 0LBW0ZZ Excision of Left Foot Tendon, Open Approach (ICD-10-PCS; 2020-02-08)
PROC: 0HRNX74 Replacement of Left Foot Skin with Autologous Tissue Substitute, Partial Thickness, External Approach (ICD-10-PCS; 2020-02-16)
PROC: 0HBJXZZ Excision of Left Upper Leg Skin, External Approach (ICD-10-PCS; 2020-02-16)
PROC: 0LBW0ZZ Excision of Left Foot Tendon, Open Approach (ICD-10-PCS; 2020-02-16)
PROC: 05HY33Z Insertion of Infusion Device into Upper Vein, Percutaneous Approach (ICD-10-PCS; 2020-02-21)
PROC: B54MZZA Ultrasonography of Right Upper Extremity Veins, Guidance (ICD-10-PCS; 2020-02-21)
DX: A41.9 Sepsis, unspecified organism (principal); M72.6 Necrotizing fasciitis; N17.9 Acute kidney failure, unspecified; E11.65 Type 2 diabetes mellitus with hyperglycemia; E87.1 Hypo-osmolality and hyponatremia; M86.8X7 Other osteomyelitis, ankle and foot; B96.89 Other specified bacterial agents as the cause of diseases classified elsewhere; I10 Essential (primary) hypertension; E11.69 Type 2 diabetes mellitus with other specified complication; E43 Unspecified severe protein-calorie malnutrition; L08.9 Local infection of the skin and subcutaneous tissue, unspecified; D63.8 Anemia in other chronic diseases classified elsewhere; E11.22 Type 2 diabetes mellitus with diabetic chronic kidney disease; E11.40 Type 2 diabetes mellitus with diabetic neuropathy, unspecified; E11.51 Type 2 diabetes mellitus with diabetic peripheral angiopathy without gangrene; I12.9 Hypertensive chronic kidney disease with stage 1 through stage 4 chronic kidney disease, or unspecified chronic kidney disease; N18.9 Chronic kidney disease, unspecified; Z79.4 Long term (current) use of insulin; Z68.28 Body mass index [BMI] 28.0-28.9, adult
CPT/HCPCS: 36245; 36569; 73700; 76937; 83605; 86140; 86850; 86900; 86901; 87040; 87070; 87081; 87205; 87426; 88304; 88305; 88311; 93971; 97116; 97530; 99291; G0378; J0131; J0330; J0696; J1100; J1170; J1644; J1815; J2185; J2250; J2270; J2405; J2543; J2704; J3010; J3370; J3490; J7030; J7050; J7060; J7120

== ENCOUNTER → 2020-09-15 | Outpatient (CLI) | payer OTHER ==
[~2020-09-15] MED LIST changes: +APIX5TAB PO; -DEXAMETHASONE SOD PHOS 4 MG/ML VIAL IVP ONE; -FentaNYL CITRATE PF 100 MCG/2 ML VIAL IVP ONE; -LIDOCAINE/PF 2% 5 ML VIAL INJ ONE; -ONDANSETRON HCL 4 MG/2 ML VIAL IVP ONE; -PROPOFOL 1% 20 ML VIAL IVP ONE; -ROCURONIUM BROMIDE 10 MG/ML 5 ML VIAL IVP ONE
== END | disposition home or self-care (01) ==
LOC: RADMN 12:31
PROVIDERS: ATTEND Podiatrist Foot & Ankle Surgery
DX: M86.172 Other acute osteomyelitis, left ankle and foot (principal); M25.472 Effusion, left ankle; Z89.422 Acquired absence of other left toe(s)
CPT/HCPCS: 73718

== ENCOUNTER 2020-09-20 17:25 | Emergency (ER) | payer SELFPAY ==
[~2020-09-20] VITALS: Ht 172.7 cm; Wt 97.7 kg
[2020-09-20 22:51] LABS: BASOPHILS % (AUTO) 0.6 % (0.0-2.0); EOSINOPHILS % (AUTO) 3.4 % (1.0-6.0); HEMATOCRIT 38.6 % (41-53); HEMOGLOBIN 12.7 g/dL (13.5-17.5); LYMPHOCYTES # (AUTO) 2.8 K/uL (1.0-4.8); LYMPHOCYTES % (AUTO) 32.1 % (22.0-44.0); MEAN CORPUSCULAR HEMOGLOBIN 29.7 pg (26.0-34.0); MEAN CORPUSCULAR HGB CONC 32.9 G/dL (31.0-37.0); MEAN CORPUSCULAR VOLUME 90 fL (80-100); MONOCYTES # (AUTO) 1.5 K/uL (0.1-1.0); MONOCYTES % (AUTO) 17.5 % (2.0-9.0); NEUTROPHILS % (AUTO) 46.4 % (40.0-70.0); PLATELET COUNT (AUTO) 246 K/uL (150-450); RED BLOOD CELL COUNT(AUTO) 4.29 MIL/uL (4.50-5.90); RED CELL DISTRIBUTION WIDTH 14.1 % (11.5-14.5)
[2020-09-20 23:02] LABS: CREATININE 2.63 mg/dL (0.60-1.30); POTASSIUM 4.3 mmol/L (3.5-5.1)
[2020-09-20 23:05] LABS: INR 0.9 (0.9-1.1); PROTHROMBIN TIME 10.1 SEC (9.4-11.6)
[2020-09-20 23:08] LABS: ALBUMIN 3.2 g/dL (3.4-5.0); BILIRUBIN,TOTAL 0.4 mg/dL (0.1-1.0); TOTAL PROTEIN, SERUM 8.3 g/dL (6.4-8.2)
[2020-09-20] MEDS ORDERED: SODIUM CHLORIDE 0.9% 1,000 ML IV ONE (23:30)
[2020-09-21] MEDS ORDERED: CLINDAMYCIN 900 MG/D5% WATER 50 ML IV ONE (01:30)
[2020-09-21 02:00] VITALS: BP 142/84
[2020-09-21] MEDS ORDERED: PB/HYOSCY/ATR/SCOP/LIDO/MAALOX 55 ML BOTTLE PO ONE (02:00)
== END 2020-09-21 02:38 | disposition home or self-care (01) ==
LOC: EMS 17:31
DX: L03.115 Cellulitis of right lower limb (principal); L03.116 Cellulitis of left lower limb; I10 Essential (primary) hypertension; E11.9 Type 2 diabetes mellitus without complications
CPT/HCPCS: 36415; 73630 ×2; 80053; 82962; 85025; 85610; 96361; 96365; 99285; J3490; J7030